=== PATIENT | female | born 1955 | race Caucasian/White ===

== ENCOUNTER 2017-05-09 10:46 | Inpatient (IN) | payer OTHER ==
[2017-05-09] MEDS ORDERED: SODIUM CHLORIDE 0.9% 1,000 ML IV ONE (11:19)
[2017-05-09] MEDS ORDERED: KETOROLAC 30 MG/ML 1 ML VIAL IVP STA (11:19)
--- NOTE | 2017-05-09 11:30 | ED ---
Abdominal Pain HPI - General Chief Complaint: Abdominal Pain Stated Complaint: abd pain Time Seen by Provider: 05/09/17 10:54 Source: patient, RN notes reviewed Mode of arrival: ambulatory Limitations: no limitations - History of Present Illness Initial Comments: Patient is a 61-year-old female presents emergency room for evaluation of abdominal pain. Patient states pain began about a week because been getting worse. Patient states the pain has been worsening over the past 2 days. Patient does states she has history of diverticulosis. Patient states she feels that she's having a diverticulitis flareup. Patient states last flareup was in 2013. Patient states she's having right lower quadrant and left lower quadrant pain. Patient states she's been having a mix of diarrhea and constipation. Patient states she had diarrhea all day yesterday and has not had a bowel movement today. Patient denies any blood in stools or dark tarry stools. Patient denies pain or burning during urination, trouble urinating or blood in urine. Patient states she's had a history of D&C and tubal ligation. Patient denies any other abdominal surgeries. Patient states she was nauseous yesterday. Patient denies any current nausea today. Patient states the pain comes in waves. Patient states currently having 6 out of 10 pain. Patient denies fevers or chills. Patient denies chest pain or shortness of breath. Patient has been taking ibuprofen at home with no relief of symptoms. - Related Data Home Medications Medication Instructions Recorded Confirmed Multivitamin/Iron/Folic Acid 1 tab PO DAILY 11/20/15 05/09/17 [Centrum Complete Multivit Tab] Citalopram Hydrobromide [CeleXA] 10 mg PO DAILY 05/09/17 05/09/17 Previous Rx's Medication Instructions Recorded Ibuprofen [Motrin] 600 mg PO Q6HR PRN #20 tab 11/20/15 Allergies Allergy/AdvReac Type Severity Reaction Status Date / Time metronidazole [From Flagyl] AdvReac Nausea & Verified 05/09/17 10:51 Vomiting Review of Systems ROS Statement: Those systems with pertinent positive or pertinent negative responses have been documented in the HPI. ROS Other: All systems not noted in ROS Statement are negative. Past Medical History Past Medical History: Hyperlipidemia Additional Past Medical History / Comment(s): diverticulitis History of Any Multi-Drug Resistant Organisms: None Reported Past Surgical History: Hysterectomy Past Psychological History: Anxiety, Depression Smoking Status: Current every day smoker Past Alcohol Use History: Rare Past Drug Use History: None Reported - Past Family History Father Family Medical History: Diabetes Mellitus, Hypertension Additional Family Medical History / Comment(s): septicemia, from Mother Family Medical History: Cancer, Hypertension Additional Family Medical History / Comment(s): leukemia Brother(s) Family Medical History: Coronary Artery Disease (CAD) Additional Family Medical History / Comment(s): heart bypass General Exam - General Exam Comments Initial Comments: sitting in exam room, no distress. Limitations: no limitations General appearance: alert, in no apparent distress Head exam: Present: atraumatic, normocephalic, normal inspection Eye exam: Present: normal appearance ENT exam: Present: normal exam Neck exam: Present: normal inspection Respiratory exam: Present: normal lung sounds bilaterally. Absent: respiratory distress Cardiovascular Exam: Present: normal rhythm, tachycardia, normal heart sounds GI/Abdominal exam: Present: soft, tenderness (RLQ/LLQ), normal bowel sounds. Absent: distended, guarding, rebound, rigid Extremities exam: Present: normal inspection Back exam: Present: normal inspection Neurological exam: Present: alert, oriented X3, CN II-XII intact, normal gait Psychiatric exam: Present: normal affect, normal mood Skin exam: Present: warm, dry, intact, normal color. Absent: rash Course Vital Signs 05/09/17 05/09/17 05/09/17 10:46 11:43 12:33 Temperature 99.3 F Pulse Rate 115 H 84 77 Respiratory 18 20 18 Rate Blood Pressure 123/56 99/53 99/66 O2 Sat by Pulse 95 95 97 Oximetry 05/09/17 13:45 Temperature 98.0 F Pulse Rate 77 Respiratory 20 Rate Blood Pressure 99/56 O2 Sat by Pulse 99 Oximetry Medical Decision Making - Medical Decision Making Patient is 61-year-old female since emergency room for evaluation of abdominal pain. CT abdomen/pelvis significant for diverticulitis. Patient does have an elevated white count. Secondary to elevated white count, will admit patient with IV antibiotics. Patient is ALLERGIC to metronidazole. Patient be started on Zosyn. Case discussed Dr. Hutchinson, who discussed case with Dr. Sanchez, who agreed to admit patient. - Lab Data Result diagrams: 05/09/17 11:17 05/09/17 11:17 Lab Results 05/09/17 05/09/17 05/09/17 Range/Units 11:17 11:17 11:17 WBC 20.6 H (3.8-10.6) k/uL RBC 5.26 (3.80-5.40) m/uL Hgb 16.4 H (11.4-16.0) gm/dL Hct 48.4 H (34.0-46.0) % MCV 92.0 (80.0-100.0) fL MCH 31.2 (25.0-35.0) pg MCHC 34.0 (31.0-37.0) g/dL RDW 13.9 (11.5-15.5) % Plt Count 271 (150-450) k/uL Neutrophils % 75 % Lymphocytes % 14 % Monocytes % 8 % Eosinophils % 1 % Basophils % 1 % Neutrophils # 15.5 H (1.3-7.7) k/uL Lymphocytes # 2.9 (1.0-4.8) k/uL Monocytes # 1.6 H (0-1.0) k/uL Eosinophils # 0.2 (0-0.7) k/uL Basophils # 0.1 (0-0.2) k/uL Sodium 140 (137-145) mmol/L Potassium 4.2 (3.5-5.1) mmol/L Chloride 110 H (98-107) mmol/L Carbon Dioxide 26 (22-30) mmol/L Anion Gap 4 mmol/L BUN 10 (7-17) mg/dL Creatinine 0.73 (0.52-1.04) mg/dL Est GFR (MDRD) Af Amer >60 (>60 ml/min/1.73 sqM) Est GFR (MDRD) Non-Af >60 (>60 ml/min/1.73 sqM) Glucose 105 H (74-99) mg/dL Calcium 8.7 (8.4-10.2) mg/dL Magnesium 2.1 (1.6-2.3) mg/dL Total Bilirubin 1.1 (0.2-1.3) mg/dL AST 14 (14-36) U/L ALT 27 (9-52) U/L Alkaline Phosphatase 48 (38-126) U/L Total Protein 5.7 L (6.3-8.2) g/dL Albumin 3.4 L (3.5-5.0) g/dL Amylase 42 (30-110) U/L Lipase 46 (23-300) U/L Urine Color Yellow Urine Appearance Clear (Clear) Urine pH 5.5 (5.0-8.0) Ur Specific [place] 1.011 (1.001-1.035) Urine Protein Negative (Negative) Urine Glucose (UA) Negative (Negative) Urine Ketones Negative (Negative) Urine Blood Trace H (Negative) Urine Nitrite Negative (Negative) Urine Bilirubin Negative (Negative) Urine Urobilinogen <2.0 (<2.0) mg/dL Ur Leukocyte Esterase Negative (Negative) Urine RBC <1 (0-5) /hpf Urine WBC 1 (0-5) /hpf Ur Squamous Epith Cells 1 (0-4) /hpf Urine Mucus Rare H (None) /hpf - Radiology Data Radiology results: report reviewed, image reviewed Disposition Clinical Impression: Diverticulitis Disposition: ADMITTED IP TO THIS [facility] Condition: Stable Decision Date: 05/09/17
[2017-05-09 11:32] LABS: Basophils # (A) 0.1 k/uL (0-0.2); Basophils % (A) 1 %; CH 30.7; CHCM 33.6; Eosinophils # (A) 0.2 k/uL (0-0.7); Eosinophils % (A) 1 %; HCT 48.4 % (34.0-46.0); HDW 2.33; HGB 16.4 gm/dL (11.4-16.0); Luc % (Auto) 2; Lymphocytes # (A) 2.9 k/uL (1.0-4.8); Lymphocytes % (A) 14 %; MCH 31.2 pg (25.0-35.0); Mean Platelet Volume 8.6; Monocytes # (A) 1.6 k/uL (0-1.0); Monocytes % (A) 8 %; Neutrophils # (A) 15.5 k/uL (1.3-7.7); Neutrophils % (A) 75 %; RBC 5.26 m/uL (3.80-5.40); RDW 13.9 % (11.5-15.5); WBC 20.6 k/uL (3.8-10.6); WBC (Perox) 20.82
[2017-05-09 11:35] LABS: ALT 27 U/L (9-52); AST 14 U/L (14-36); Alkaline Phosphatase 48 U/L (38-126); Amylase 42 U/L (30-110); Anion Gap 4 mmol/L; Blood Urea Nitrogen 10 mg/dL (7-17); Calcium 8.7 mg/dL (8.4-10.2); Carbon Dioxide 26 mmol/L (22-30); Chloride 110 mmol/L (98-107); Glucose 105 mg/dL (74-99); Magnesium 2.1 mg/dL (1.6-2.3); Non-African American GFR(MDRD) >60 (>60 ml/min/1.73 sqM); Potassium 4.2 mmol/L (3.5-5.1); Sodium 140 mmol/L (137-145); Total Bilirubin 1.1 mg/dL (0.2-1.3); Total Protein 5.7 g/dL (6.3-8.2)
[2017-05-09 11:41] LABS: Appearance,Urine Clear (Clear); Bilirubin,Urine Negative (Negative); Glucose,Urine (UA) Negative (Negative); Ketones,Urine Negative (Negative); Leukocyte Esterase,Urine Negative (Negative); Mucus,Urine Rare /hpf; Nitrite,Urine Negative (Negative); PH, Urine 5.5 (5.0-8.0); Particle Count 1000; Protein,Urine Negative (Negative); RBC,Urine <1 /hpf (0-5); Specific Gravity,Urine 1.011 (1.001-1.035); Squamous Epithelial Cell,Urine 1 /hpf (0-4); UA Billing (MACRO vs. MICRO) MICRO; Urobilinogen,Urine <2.0 mg/dL (<2.0); WBC,Urine 1 /hpf (0-5)
[2017-05-09] MEDS ORDERED: RX INFO: IV CONTRAST WAS GIVEN 1 EACH MISC MISCELLANE PRN (11:52)
--- NOTE | 2017-05-09 12:29 | CT ---
EXAMINATION TYPE: CT abdomen pelvis w con DATE OF EXAM: 05/09/2017 HISTORY: Abdomen pain in particular low pelvic pain for one week. CT DLP: 646.3mGycm Automated Exposure Control for Dose Reduction was Utilized. CONTRAST: CT scan of the abdomen and pelvis is performed without oral but with IV Contrast, patient injected wi th 100 mL of Omnipaque 300. COMPARISON: CT abdomen and pelvis July 03, 2014. FINDINGS: LUNG BASES: Mild cardiomegaly is redemonstrated. LIVER/GB: No significant abnormality is appreciated. PANCREAS: No significant abnormality is seen. SPLEEN: No significant abnormality is seen. ADRENALS: Slight thickening to left adrenal gland is felt to reflect hyperplasia. KIDNEYS: Subcentimeter low dense lesion lower pole level right kidney on coronal series 7 image 56 is too small to further characterize but presumed benign and stable from prior. BOWEL: Evaluation of bowel is suboptimal secondary to lack of enteric contrast. There is no suspiciou s small or large bowel dilatation. There artifact particularly scattered throughout the colon most pr onounced in the sigmoid colon. In proximal to mid sigmoid colon in the left pelvis there is mild to m inimal surrounding fat stranding and ill-defined fluid, findings are consistent with acute diverticul itis this is seen best on coronal image 35. UTERUS/ADNEXA: Uterus is surgically absent or markedly atrophic in appearance. Scattered pelvic phleb oliths are noted. LYMPH NODES: No greater than 1cm abdominal or pelvic lymph nodes are appreciated. OSSEOUS STRUCTURES: There is multilevel spurring throughout the thoracolumbar spine. There is multile bri disc space narrowing and vacuum disc phenomenon in the lower thoracic and upper lumbar spine. OTHER: There is fairly moderate diffuse mixed plaque throughout the aorta. IMPRESSION: There is a mild acute diverticulitis centered in the proximal to mid sigmoid colon of the left pelvis. No free air or well-formed fluid collection/abscess is noted.
[2017-05-09] MEDS ORDERED: PIPERACILLIN-TAZOBACTAM 3.375 GM in DEXTROSE/WATER 1 50ML.BAG IVPB STA (12:50)
[2017-05-09] MEDS ORDERED: ONDANSETRON 4 MG/2 ML VIAL IVP PRN ×2 (12:51→15:04)
[2017-05-09] MEDS ORDERED: NALOXONE 0.4 MG/ML 1 ML VIAL IV PRN (12:51)
[2017-05-09] MEDS: SODIUM CHLORIDE 0.9% 1,000 ML IV SCH ×3 (13:05→23:53)
[2017-05-09] MEDS: MORPHINE SULFATE 4 MG/ML SYRINGE IV PRN ×2 (14:16→21:49)
[2017-05-09 14:53] VITALS: BMI 26.6
[2017-05-09] MEDS: KETOROLAC 30 MG/ML 1 ML VIAL IVP PRN (16:52)
[2017-05-09] MEDS: diphenhydrAMINE 25 MG CAP PO PRN (21:49)
[2017-05-10] MEDS: CITALOPRAM HYDROBROMIDE 10 MG TAB PO SCH (08:50)
[2017-05-10] MEDS: MORPHINE SULFATE 4 MG/ML SYRINGE IV PRN ×2 (08:51→22:04)
[2017-05-10] MEDS: SODIUM CHLORIDE 0.9% 1,000 ML IV SCH ×2 (08:57→17:37)
[2017-05-10 09:43] LABS: Basophils # (A) 0.1 k/uL (0-0.2); Basophils % (A) 0 %; CH 30.8; CHCM 32.4; Eosinophils # (A) 0.2 k/uL (0-0.7); Eosinophils % (A) 2 %; HCT 42.7 % (34.0-46.0); HDW 2.27; HGB 13.7 gm/dL (11.4-16.0); Luc # (Auto) 0.23; Luc % (Auto) 2; Lymphocytes # (A) 2.5 k/uL (1.0-4.8); Lymphocytes % (A) 20 %; MCH 30.7 pg (25.0-35.0); MCHC 32.1 g/dL (31.0-37.0); MCV 95.7 fL (80.0-100.0); Mean Platelet Volume 8.7; Monocytes # (A) 0.9 k/uL (0-1.0); Monocytes % (A) 7 %; Neutrophils # (A) 8.7 k/uL (1.3-7.7); Neutrophils % (A) 69 %; RBC 4.47 m/uL (3.80-5.40); RDW 14.1 % (11.5-15.5); WBC 12.6 k/uL (3.8-10.6); WBC (Perox) 12.56
[2017-05-10 10:01] LABS: ALT 27 U/L (9-52); AST 13 U/L (14-36); Alkaline Phosphatase 42 U/L (38-126); Anion Gap 5 mmol/L; Blood Urea Nitrogen 6 mg/dL (7-17); Calcium 7.9 mg/dL (8.4-10.2); Carbon Dioxide 25 mmol/L (22-30); Chloride 111 mmol/L (98-107); Glucose 108 mg/dL (74-99); Non-African American GFR(MDRD) >60 (>60 ml/min/1.73 sqM); Potassium 4.4 mmol/L (3.5-5.1); Sodium 141 mmol/L (137-145); Total Bilirubin 0.5 mg/dL (0.2-1.3); Total Protein 4.7 g/dL (6.3-8.2)
[2017-05-10] MEDS: MULTIVITAMINS, THERA 1 EACH TAB PO SCH (13:21)
[2017-05-10] MEDS: KETOROLAC 30 MG/ML 1 ML VIAL IVP PRN ×2 (13:21→17:34)
--- NOTE | 2017-05-10 15:33 | P.HPIM ---
History of Present Illness H&P Date: 05/09/17 Chief Complaint: Adbominal pain and diarrhea Ms. Adams is a 62-year-old female with a past medical history of hyperlipidemia, diverticulitis coming to the hospital with a chief complaint of abdominal pain and diarrhea. Patient states that she has been having abdominal pain mostly in the deep pelvic area for the past 1 week. She started to have diarrhea for the past couple of days and it has worsened over the past 24 hours that she had to come into the hospital. Patient denies having a low- grade fever. She states that she threw up once. Patient denies having any blood in her stools or dark colored stools. Patient denies having any urinary tract symptoms like dysuria or hematuria. She denies having any chest pain or cough difficulty in breathing. She denies having any other active problems. She has history of diverticulitis and has been treated with antibiotics couple of times in the past. Review of Systems REVIEW OF SYSTEMS: PSYCH: Normal psychiatric exam NEURO:No c/o weakness of the extremties, No facial droop, No speech abnormalities. VASCULAR: Peripheral nervous system within the normal limits no edema HEMATOLOGIC: No history of easy bleeding and bruising . No recent infections . RESPIRATORY: No cough, No SOB, No chest discomfort. IMMUNE: No infections INTEGUMENT: no rashes OPHTHALMOLOGIC: No blurry vision and no eye discharge : No dysuria or hematuria STAFF REPORTER: No bleeding PV CARDIAC: No chest pain , shortness of breath , paroxysmal nocturnal dyspnea MUSCULOSKELETAL : No Aches or pains in the joints or muscles. All 13 systems are done and negative except for ones mentioned in HPI. Past Medical History Past Medical History: Hyperlipidemia Additional Past Medical History / Comment(s): diverticulitis History of Any Multi-Drug Resistant Organisms: None Reported Past Surgical History: Hysterectomy Additional Past Surgical History / Comment(s): D&C, oopherectomy Past Anesthesia/Blood Transfusion Reactions: Postoperative Nausea & Vomiting ( PONV) Past Psychological History: Anxiety, Depression Smoking Status: Current every day smoker Past Alcohol Use History: Rare Past Drug Use History: None Reported - Past Family History Father Family Medical History: Diabetes Mellitus, Hypertension Additional Family Medical History / Comment(s): septicemia, from Mother Family Medical History: Cancer, Hypertension Additional Family Medical History / Comment(s): leukemia Brother(s) Family Medical History: Coronary Artery Disease (CAD) Additional Family Medical History / Comment(s): heart bypass Medications and Allergies Home Medications Medication Instructions Recorded Confirmed Type Multivitamin/Iron/Folic Acid 1 tab PO DAILY 11/20/15 05/09/17 History [Centrum Complete Multivit Tab] Citalopram Hydrobromide [CeleXA] 10 mg PO DAILY 05/09/17 05/09/17 History Allergies Allergy/AdvReac Type Severity Reaction Status Date / Time metronidazole [From Flagyl] AdvReac Nausea & Verified 05/09/17 10:51 Vomiting Physical Exam Vitals: Vital Signs Temp Pulse Pulse Resp BP BP Pulse Ox 05/09/17 14:25 97.3 F L 76 16 119/64 96 05/09/17 13:45 98.0 F 77 20 99/56 99 05/09/17 12:33 77 18 99/66 97 05/09/17 11:43 84 20 99/53 95 05/09/17 10:46 99.3 F 115 H 18 123/56 95 Intake and Output 05/09/17 05/09/17 05/09/17 06:59 14:59 22:59 Intake Total 50 Balance 50 Intake: Intake, IV Titration 50 Amount Piperacillin-Tazobactam 3 50 .375 gm In Dextrose/Water 1 50ml.bag @ 12.5 mls/hr IVPB ONCE STA Rx#: [id number] Other: # Voids 1 Weight 70.3 kg 70.3 kg Patient Weight 05/10/17 06:59 Weight 70.3 kg Limitations: no limitations General appearance: alert, in no apparent distress Head exam: Present: atraumatic, normocephalic, normal inspection Eye exam: Present: normal appearance ENT exam: Present: normal exam Neck exam: Present: normal inspection Respiratory exam: Present: normal lung sounds bilaterally. Absent: respiratory distress Cardiovascular Exam: Present: normal rhythm, tachycardia, normal heart sounds GI/Abdominal exam: Present: soft, tenderness in both the lower abdominal quadrants normal bowel sounds. Absent: distended, guarding, rebound, rigid Extremities exam: Present: normal inspection Back exam: Present: normal inspection Neurological exam: Present: alert, oriented X3, CN II-XII intact, normal gait Psychiatric exam: Present: normal affect, normal mood Skin exam: Present: warm, dry, intact, normal color. Absent: rash Results CBC & Chem 7: 05/10/17 09:16 05/10/17 09:16 Labs: Abnormal Lab Results - Last 24 Hours (Table) 05/09/17 05/09/17 05/09/17 Range/Units 11:17 11:17 11:17 WBC 20.6 H (3.8-10.6) k/uL Hgb 16.4 H (11.4-16.0) gm/dL Hct 48.4 H (34.0-46.0) % Neutrophils # 15.5 H (1.3-7.7) k/uL Monocytes # 1.6 H (0-1.0) k/uL Chloride 110 H (98-107) mmol/L Glucose 105 H (74-99) mg/dL Total Protein 5.7 L (6.3-8.2) g/dL Albumin 3.4 L (3.5-5.0) g/dL Urine Blood Trace H (Negative) Urine Mucus Rare H (None) /hpf Thrombosis Risk Factor Assmnt - Choose All That Apply Any of the Below Risk Factors Present?: Yes Each Factor Represents 1 point: Obesity (BMI >25) Other Risk Factors: Yes Each Risk Factor Represents 2 Points: Age 61-74 years Other congenital or acquired thrombophilia - If yes, enter type in comment: No Thrombosis Risk Factor Assessment Total Risk Factor Score: 3 Thrombosis Risk Factor Assessment Level: Moderate Risk Assessment and Plan Plan: ASSESSMENT Acute Diverticulitis Hyperlipidemia PLAN- Pt is allergic to Flagyl , so she was started on Zosyn tat will be continued. Will resume her home meds and further recs to follow depending on the progress of the pt.
--- NOTE | 2017-05-10 15:36 | P.PN ---
Subjective Principal diagnosis: Abdominal pain and diarrhea Ms. Adams is a 62-year-old female with a past medical history of hyperlipidemia, diverticulitis coming to the hospital with a chief complaint of abdominal pain and diarrhea. Patient states that she has been having abdominal pain mostly in the deep pelvic area for the past 1 week. She started to have diarrhea for the past couple of days and it has worsened over the past 24 hours that she had to come into the hospital. Patient denies having a low- grade fever. She states that she threw up once. Patient denies having any blood in her stools or dark colored stools. Patient denies having any urinary tract symptoms like dysuria or hematuria. She had a CAT scan of the abdomen and pelvis showing acute diverticulitis. As the patient is ALLERGIC to Flagyl she was started on Zosyn which will be continued. Review of systems - CARDIAC - she denies having any chest pain, palpitations RESPIRATORY- no cough or difficulty in breathing - No dysuria or hematuria GI- the area improved no bowel movement since admission. Abdominal pain 2 out of 10 today. Objective - Vital Signs Vital signs: Vital Signs Temp 98.3 F 05/10/17 15:00 Pulse 62 05/10/17 15:00 Resp 16 05/10/17 15:00 BP 107/66 05/10/17 15:00 Pulse Ox 93 L 05/10/17 15:00 Intake & Output 05/09/17 05/10/17 05/10/17 18:59 06:59 18:59 Intake Total 50 600 900 Balance 50 600 900 Weight 70.3 kg Intake: Intake, IV Titration 50 500 Amount Piperacillin-Tazobactam 3 50 .375 gm In Dextrose/Water 1 50ml.bag @ 12.5 mls/hr IVPB ONCE STA Rx#: [id number] Sodium Chloride 0.9% 1, 500 000 ml @ 100 mls/hr IV . Q10H ACE Rx#:[id number] Oral 600 400 Other: # Voids 1 0 - Exam GENERAL EXAM GEN. APPEARANCE: alert, in no apparent distress HEAD EXAM: atraumatic, normocephalic, normal inspection NECK EXAM: normal inspection. Absent: tenderness, meningismus, full ROM, lymphadenopathy RESPIRATORY EXAM: normal lung sounds bilaterally. Absent: respiratory distress , wheezes, rales, rhonchi, stridor CARDIOVASCULAR EXAM: regular rate, normal rhythm, normal heart sounds. Absent : systolic murmur, diastolic murmur, rubs, gallop, clicks GI/ABDOMINAL EXAM: soft, normal bowel sounds. Absent: distended, tenderness, guarding, rebound, rigid EXTREMITIES EXAM: normal inspection, full ROM, normal capillary refill. Absent : tenderness, pedal edema, joint swelling, calf tenderness NEUROLOGICAL EXAM: alert, oriented X3, CN II-XII intact, motor sensory deficit PSYCHIATRIC EXAM: normal affect, normal mood SKIN EXAM: warm, dry, intact, normal color. Absent: rash - Labs CBC & Chem 7: 05/10/17 09:16 05/10/17 09:16 Labs: Abnormal Lab Results - Last 24 Hours (Table) 05/10/17 05/10/17 Range/Units 09:16 09:16 WBC 12.6 H (3.8-10.6) k/uL Neutrophils # 8.7 H (1.3-7.7) k/uL Chloride 111 H (98-107) mmol/L BUN 6 L (7-17) mg/dL Glucose 108 H (74-99) mg/dL Calcium 7.9 L (8.4-10.2) mg/dL AST 13 L (14-36) U/L Total Protein 4.7 L (6.3-8.2) g/dL Albumin 2.7 L (3.5-5.0) g/dL Microbiology - Last 24 Hours (Table) 05/09/17 13:05 Blood Culture - Preliminary Blood No Growth after 24 hours Assessment and Plan Plan: ASSESSMENT Acute Diverticulitis Hyperlipidemia PLAN- Pt is allergic to Flagyl , so Zosyn was started. WBC trending down. We will advance the diet as tolerated. Continue with the rest of her current medication regimen and further recommendations to follow depending on the progress of the patient.
[2017-05-10] MEDS: diphenhydrAMINE 25 MG CAP PO PRN (22:04)
[2017-05-11] MEDS: SODIUM CHLORIDE 0.9% 1,000 ML IV SCH ×2 (05:16→09:11)
[2017-05-11 08:25] LABS: Basophils # (A) 0.1 k/uL (0-0.2); Basophils % (A) 1 %; CH 30.5; CHCM 32.7; Eosinophils # (A) 0.3 k/uL (0-0.7); Eosinophils % (A) 3 %; HCT 42.2 % (34.0-46.0); HDW 2.33; Luc # (Auto) 0.17; Luc % (Auto) 2; Lymphocytes # (A) 2.8 k/uL (1.0-4.8); Lymphocytes % (A) 30 %; MCHC 33.1 g/dL (31.0-37.0); MCV 93.6 fL (80.0-100.0); Mean Platelet Volume 8.3; Monocytes # (A) 0.5 k/uL (0-1.0); Monocytes % (A) 6 %; Neutrophils # (A) 5.3 k/uL (1.3-7.7); Neutrophils % (A) 58 %; RDW 13.6 % (11.5-15.5); WBC 9.2 k/uL (3.8-10.6); WBC (Perox) 10.05
[2017-05-11] MEDS: CITALOPRAM HYDROBROMIDE 10 MG TAB PO SCH (09:10)
[2017-05-11] MEDS: MULTIVITAMINS, THERA 1 EACH TAB PO SCH (09:10)
[2017-05-11] MEDS: KETOROLAC 30 MG/ML 1 ML VIAL IVP PRN (09:37)
[2017-05-11] MEDS ORDERED: PIPERACILLIN-TAZOBACTAM 3.375 GM in DEXTROSE/WATER 1 50ML.BAG IVPB STA (11:05)
[2017-05-11 14:58] VITALS: BP 121/74; PULSE 64; RESP 20; TEMP 98.2
--- NOTE | 2017-05-11 15:23 | P.DS ---
Providers Date of admission: 05/09/17 13:20 Attending physician: Samantha Smith Primary care physician: [facility] Course: Ms. Adams is a 62-year-old female with a past medical history of hyperlipidemia, diverticulitis coming to the hospital with a chief complaint of abdominal pain and diarrhea. Patient states that she has been having abdominal pain mostly in the deep pelvic area for the past 1 week. She started to have diarrhea for the past couple of days and it has worsened over the past 24 hours that she had to come into the hospital. Patient denies having a low- grade fever. She states that she threw up once. Patient denies having any blood in her stools or dark colored stools. Patient denies having any urinary tract symptoms like dysuria or hematuria. She denies having any chest pain or cough difficulty in breathing. She denies having any other active problems. She had a CAT scan of the abdomen and pelvis showing acute diverticulitis. As the patient is ALLERGIC to Flagyl she was started on Zosyn which was continued. WBC was trending down. Advanced the diet as tolerated. Continued with the rest of her current medication regimen. She is able to tolerate PO soilds and she has one formed bowel movement this morning. She is being discharged home on Augmentin twice a day for 5 days. More than 35 minutes spent towards the discharge with the patient Patient Condition at Discharge: Fair Plan - Discharge Summary New Discharge Prescriptions: New Amoxic-Pot Clav 875-125Mg [Augmentin 875-125] 1 tab PO Q12HR #10 tablet Continue Multivitamin/Iron/Folic Acid [Centrum Complete Multivit Tab] 1 tab PO DAILY Ibuprofen [Motrin] 600 mg PO Q6HR PRN #20 tab PRN Reason: Pain Citalopram Hydrobromide [CeleXA] 10 mg PO DAILY Discharge Medication List Ibuprofen [Motrin] 600 mg PO Q6HR PRN #20 tab 11/20/15 [Rx] Multivitamin/Iron/Folic Acid [Centrum Complete Multivit Tab] 1 tab PO DAILY [History] Citalopram Hydrobromide [CeleXA] 10 mg PO DAILY 05/09/17 [History] Amoxic-Pot Clav 875-125Mg [Augmentin 875-125] 1 tab PO Q12HR #10 tablet [Rx] Follow up Appointment(s)/Referral(s): Ana Bowles MD [Primary Care Provider] - 05/19/17 9:00 am Patient Instructions/Handouts: How to Stop Smoking (DC), Diverticulitis (DC) Discharge Disposition: HOME SELF-CARE
== END 2017-05-11 16:26 | disposition home or self-care (01) | DRG 392 ==
LOC: EC 10:46 → 4MS4W 13:20
PROVIDERS: ADMIT Internal Medicine; ATTEND Internal Medicine
DX: K57.32 Diverticulitis of large intestine without perforation or abscess without bleeding (principal); F32.9 Major depressive disorder, single episode, unspecified; R11.0 Nausea; D72.829 Elevated white blood cell count, unspecified; R19.7 Diarrhea, unspecified; R00.0 Tachycardia, unspecified; K57.30 Diverticulosis of large intestine without perforation or abscess without bleeding; K59.00 Constipation, unspecified; F41.9 Anxiety disorder, unspecified; E78.5 Hyperlipidemia, unspecified; F17.200 Nicotine dependence, unspecified, uncomplicated; Z88.1 Allergy status to other antibiotic agents; Z80.6 Family history of leukemia; Z82.49 Family history of ischemic heart disease and other diseases of the circulatory system; Z79.899 Other long term (current) drug therapy; Z83.3 Family history of diabetes mellitus; Z86.19 Personal history of other infectious and parasitic diseases; Z87.19 Personal history of other diseases of the digestive system; Z90.710 Acquired absence of both cervix and uterus; Z90.721 Acquired absence of ovaries, unilateral; Z98.51 Tubal ligation status; Z79.1 Long term (current) use of non-steroidal anti-inflammatories (NSAID); Z87.42 Personal history of other diseases of the female genital tract
CPT/HCPCS: 36415; 74177; 80053; 81001; 82150; 83690; 83735; 85025; 87040; 87045; 87046; 96361; 96365; 96376; 99285

== ENCOUNTER 2017-08-13 11:13 | Emergency (ER) | payer OTHER ==
[2017-08-13] MEDS ORDERED: RX INFO: IV CONTRAST WAS GIVEN 1 EACH MISC MISCELLANE PRN (11:44)
[2017-08-13] MEDS ORDERED: SODIUM CHLORIDE 0.9% 500 ML IV STA (11:44)
--- NOTE | 2017-08-13 11:48 | ED ---
General Adult HPI - General Chief complaint: Abdominal Pain Stated complaint: Abdominal pain Time Seen by Provider: 08/13/17 11:34 Source: patient, RN notes reviewed Mode of arrival: ambulatory Limitations: no limitations - History of Present Illness Initial comments: Patient is a pleasant 62-year-old female presenting to the emergency Department with abdominal discomfort. Onset of symptoms was for 5 days ago. Discomfort is left lower abdomen. Patient has had similar problems 3 times previously associated with diverticulitis. No fevers. No nausea vomiting. No constipation or diarrhea. Discomfort is mild at this time. Patient also questions if she could've had bad chicken recently. - Related Data Home Medications Medication Instructions Recorded Confirmed Multivitamin/Iron/Folic Acid 1 tab PO DAILY 11/20/15 08/13/17 [Centrum Complete Multivit Tab] Acetaminophen/Diphenhydramine 2 tab PO HS 08/13/17 08/13/17 [Tylenol PM Extra Strength] Citalopram Hydrobromide [CeleXA] 20 mg PO DAILY 08/13/17 08/13/17 Previous Rx's Medication Instructions Recorded Amoxic-Pot Clav 875-125Mg 1 tab PO Q12HR #20 tablet 08/13/17 [Augmentin 875-125] Allergies Allergy/AdvReac Type Severity Reaction Status Date / Time metronidazole [From Flagyl] AdvReac Nausea & Verified 08/13/17 11:50 Vomiting Review of Systems ROS Statement: Those systems with pertinent positive or pertinent negative responses have been documented in the HPI. ROS Other: All systems not noted in ROS Statement are negative. Constitutional: Denies: fever Eyes: Denies: eye pain ENT: Denies: ear pain Respiratory: Denies: cough Cardiovascular: Denies: chest pain Endocrine: Denies: as per HPI Gastrointestinal: Reports: abdominal pain Genitourinary: Denies: dysuria, hematuria Musculoskeletal: Denies: back pain Skin: Denies: rash Neurological: Denies: weakness Past Medical History Past Medical History: Hyperlipidemia Additional Past Medical History / Comment(s): diverticulitis, HYPOTENSION History of Any Multi-Drug Resistant Organisms: None Reported Past Surgical History: Hysterectomy Additional Past Surgical History / Comment(s): D&C, oopherectomy Past Anesthesia/Blood Transfusion Reactions: Postoperative Nausea & Vomiting ( PONV) Past Psychological History: Anxiety, Depression Smoking Status: Current every day smoker Past Alcohol Use History: Rare Past Drug Use History: None Reported - Past Family History Father Family Medical History: Diabetes Mellitus, Hypertension Additional Family Medical History / Comment(s): septicemia, from Mother Family Medical History: Cancer, Hypertension Additional Family Medical History / Comment(s): leukemia Brother(s) Family Medical History: Coronary Artery Disease (CAD) Additional Family Medical History / Comment(s): heart bypass General Exam Limitations: no limitations General appearance: alert, in no apparent distress Head exam: Present: atraumatic Eye exam: Present: normal appearance, PERRL ENT exam: Present: normal oropharynx Neck exam: Present: normal inspection Respiratory exam: Present: normal lung sounds bilaterally Cardiovascular Exam: Present: regular rate, normal rhythm Expanded Peripheral pulses: 2+: Dorsalis Pedis (R), Dorsalis Pedis (L) GI/Abdominal exam: Present: soft, tenderness (Minimal tenderness left lower quadrant), normal bowel sounds. Absent: distended, guarding, rebound, rigid, pulsatile mass Extremities exam: Present: normal inspection Back exam: Present: normal inspection. Absent: tenderness, CVA tenderness (L) Neurological exam: Present: alert Psychiatric exam: Present: normal affect, normal mood Skin exam: Present: normal color Course Vital Signs 08/13/17 11:31 Temperature 99.9 F H Pulse Rate 92 Respiratory 18 Rate Blood Pressure 107/63 O2 Sat by Pulse 95 Oximetry Medical Decision Making - Medical Decision Making Patient reexamined and resting comfortably in bed. Patient is happy to be discharged home. Patient was updated on results and need for follow-up. - Lab Data Result diagrams: 08/13/17 12:07 08/13/17 12:07 Lab Results 08/13/17 08/13/17 08/13/17 Range/Units 12:05 12:07 12:07 WBC 12.6 H (3.8-10.6) k/uL RBC 4.86 (3.80-5.40) m/uL Hgb 14.8 (11.4-16.0) gm/dL Hct 46.2 H (34.0-46.0) % MCV 94.9 (80.0-100.0) fL MCH 30.4 (25.0-35.0) pg MCHC 32.0 (31.0-37.0) g/dL RDW 13.5 (11.5-15.5) % Plt Count 221 (150-450) k/uL Neutrophils % 58 % Lymphocytes % 31 % Monocytes % 7 % Eosinophils % 1 % Basophils % 1 % Neutrophils # 7.4 (1.3-7.7) k/uL Lymphocytes # 3.9 (1.0-4.8) k/uL Monocytes # 0.9 (0-1.0) k/uL Eosinophils # 0.2 (0-0.7) k/uL Basophils # 0.1 (0-0.2) k/uL PT (9.0-12.0) sec INR (<1.2) APTT (22.0-30.0) sec Sodium 140 (137-145) mmol/L Potassium 4.3 (3.5-5.1) mmol/L Chloride 112 H (98-107) mmol/L Carbon Dioxide 23 (22-30) mmol/L Anion Gap 5 mmol/L BUN 8 (7-17) mg/dL Creatinine 0.80 (0.52-1.04) mg/dL Est GFR (MDRD) Af Amer >60 (>60 ml/min/1.73 sqM) Est GFR (MDRD) Non-Af >60 (>60 ml/min/1.73 sqM) Glucose 101 H (74-99) mg/dL Plasma Lactic Acid Alejandro (0.7-2.0) mmol/L Calcium 8.4 (8.4-10.2) mg/dL Total Bilirubin 0.4 (0.2-1.3) mg/dL AST 17 (14-36) U/L ALT 24 (9-52) U/L Alkaline Phosphatase 40 (38-126) U/L Total Protein 5.3 L (6.3-8.2) g/dL Albumin 3.1 L (3.5-5.0) g/dL Amylase <30 L (30-110) U/L Lipase 50 (23-300) U/L Urine Color Light Yellow Urine Appearance Clear (Clear) Urine pH 6.0 (5.0-8.0) Ur Specific [place] 1.006 (1.001-1.035) Urine Protein Negative (Negative) Urine Glucose (UA) Negative (Negative) Urine Ketones Negative (Negative) Urine Blood Negative (Negative) Urine Nitrite Negative (Negative) Urine Bilirubin Negative (Negative) Urine Urobilinogen <2.0 (<2.0) mg/dL Ur Leukocyte Esterase Negative (Negative) 08/13/17 08/13/17 Range/Units 12:07 12:45 WBC (3.8-10.6) k/uL RBC (3.80-5.40) m/uL Hgb (11.4-16.0) gm/dL Hct (34.0-46.0) % MCV (80.0-100.0) fL MCH (25.0-35.0) pg MCHC (31.0-37.0) g/dL RDW (11.5-15.5) % Plt Count (150-450) k/uL Neutrophils % % Lymphocytes % % Monocytes % % Eosinophils % % Basophils % % Neutrophils # (1.3-7.7) k/uL Lymphocytes # (1.0-4.8) k/uL Monocytes # (0-1.0) k/uL Eosinophils # (0-0.7) k/uL Basophils # (0-0.2) k/uL PT 9.7 (9.0-12.0) sec INR 0.9 (<1.2) APTT 23.3 (22.0-30.0) sec Sodium (137-145) mmol/L Potassium (3.5-5.1) mmol/L Chloride (98-107) mmol/L Carbon Dioxide (22-30) mmol/L Anion Gap mmol/L BUN (7-17) mg/dL Creatinine (0.52-1.04) mg/dL Est GFR (MDRD) Af Amer (>60 ml/min/1.73 sqM) Est GFR (MDRD) Non-Af (>60 ml/min/1.73 sqM) Glucose (74-99) mg/dL Plasma Lactic Acid Alejandro 0.9 (0.7-2.0) mmol/L Calcium (8.4-10.2) mg/dL Total Bilirubin (0.2-1.3) mg/dL AST (14-36) U/L ALT (9-52) U/L Alkaline Phosphatase (38-126) U/L Total Protein (6.3-8.2) g/dL Albumin (3.5-5.0) g/dL Amylase (30-110) U/L Lipase (23-300) U/L Urine Color Urine Appearance (Clear) Urine pH (5.0-8.0) Ur Specific [place] (1.001-1.035) Urine Protein (Negative) Urine Glucose (UA) (Negative) Urine Ketones (Negative) Urine Blood (Negative) Urine Nitrite (Negative) Urine Bilirubin (Negative) Urine Urobilinogen (<2.0) mg/dL Ur Leukocyte Esterase (Negative) - Radiology Data Radiology results: report reviewed (Computed tomography scan of the abdomen pelvis does show mild to moderate inflammation and the junction of the descending and sigmoid colon. No diverticulitis.) Disposition Clinical Impression: Acute colitis Disposition: HOME SELF-CARE Condition: Stable Instructions: Colitis (ED) Additional Instructions: Please follow-up with your doctor in the next day or 2 for recheck. Return for increased pain, fevers, vomiting, diarrhea, worsening symptoms or other concerns. Prescriptions: Amoxic-Pot Clav 875-125Mg [Augmentin 875-125] 1 tab PO Q12HR #20 tablet Referrals: Ana Bowles MD [Primary Care Provider] - 1-2 days Time of Disposition: 13:52
[2017-08-13 12:19] LABS: Appearance,Urine Clear (Clear); Bilirubin,Urine Negative (Negative); Glucose,Urine (UA) Negative (Negative); Ketones,Urine Negative (Negative); Leukocyte Esterase,Urine Negative (Negative); Nitrite,Urine Negative (Negative); Protein,Urine Negative (Negative); Specific Gravity,Urine 1.006 (1.001-1.035); UA Billing (MACRO vs. MICRO) CHEM; Urobilinogen,Urine <2.0 mg/dL (<2.0)
[2017-08-13 12:34] LABS: Basophils # (A) 0.1 k/uL (0-0.2); Basophils % (A) 1 %; CH 30.7; CHCM 32.5; Eosinophils # (A) 0.2 k/uL (0-0.7); Eosinophils % (A) 1 %; HCT 46.2 % (34.0-46.0); HDW 2.22; HGB 14.8 gm/dL (11.4-16.0); Luc # (Auto) 0.18; Luc % (Auto) 2; Lymphocytes # (A) 3.9 k/uL (1.0-4.8); Lymphocytes % (A) 31 %; MCH 30.4 pg (25.0-35.0); MCV 94.9 fL (80.0-100.0); Mean Platelet Volume 8.2; Monocytes # (A) 0.9 k/uL (0-1.0); Monocytes % (A) 7 %; Neutrophils # (A) 7.4 k/uL (1.3-7.7); Neutrophils % (A) 58 %; RBC 4.86 m/uL (3.80-5.40); RDW 13.5 % (11.5-15.5); WBC 12.6 k/uL (3.8-10.6); WBC (Perox) 12.31
[2017-08-13 12:46] LABS: ALT 24 U/L (9-52); AST 17 U/L (14-36); Alkaline Phosphatase 40 U/L (38-126); Amylase <30 U/L (30-110); Anion Gap 5 mmol/L; Blood Urea Nitrogen 8 mg/dL (7-17); Calcium 8.4 mg/dL (8.4-10.2); Carbon Dioxide 23 mmol/L (22-30); Chloride 112 mmol/L (98-107); Glucose 101 mg/dL (74-99); Non-African American GFR(MDRD) >60 (>60 ml/min/1.73 sqM); Potassium 4.3 mmol/L (3.5-5.1); Sodium 140 mmol/L (137-145); Total Bilirubin 0.4 mg/dL (0.2-1.3); Total Protein 5.3 g/dL (6.3-8.2)
[2017-08-13 12:48] LABS: INR 0.9 (<1.2); Partial Thromboplastin Time 23.3 sec (22.0-30.0); Prothrombin Time 9.7 sec (9.0-12.0)
--- NOTE | 2017-08-13 12:56 | CT ---
EXAMINATION TYPE: CT abdomen pelvis w con DATE OF EXAM: 08/13/2017 COMPARISON: NONE HISTORY: 62-year-old female complains of LLQ pain with history of diverticulitis. TECHNIQUE: Contiguous axial scanning of the abdomen and pelvis following administration of 100 ml Omn ipaque 300 IV contrast. Delayed images through the kidneys and coronal/sagittal reconstructions perf ormed. CT DLP: 599.1 mGycm Automated exposure control for dose reduction was used. FINDINGS: Heart is normal size without pericardial effusion. Tiny hiatal hernia. Lung bases clear without pleur al effusion. Liver enlarged measuring 20.9 cm craniocaudal. There may be underlying fatty infiltration. Portal esteban ous system is patent. No biliary ductal dilatation. Mildly enlarged 1.9 cm portacaval lymph node appears unchanged from 05/09/2017 probably chronic reacti ve/post inflammatory. Gallbladder, adrenal glands, left kidney, spleen, and pancreas appear within normal limits. Subcentim eter hypodensity lower pole right kidney is unchanged and too small for accurate CT characterization, likely cyst. Moderate apical scarring plaque throughout the abdominal aorta. No dilated small bowel, free fluid, or free air. Normal appendix. Moderate stool in the right hemicolon. There is left hemicolonic diverticulosis, greatest in the sigmoid colon. There is wall thickening and focal inflammation centered at the junction of the descending and sigmoid colon. Moderate surroundin g inflammation is present with some strandy inflammatory edema. No abnormal fluid collection or free fluid in the pelvis. Multiple pelvic phleboliths. Bladder is non distended. Uterus surgically absent. Neither ovary is clearly delineated. Bones: Degenerative changes of hips and throughout the visualized spine. No osseous destructive proce ss. IMPRESSION: 1. LEFT HEMICOLONIC DIVERTICULOSIS WITH ACUTE DIVERTICULITIS AT THE JUNCTION OF THE DESCENDING AND SI GMOID COLON. MILD TO MODERATE INFLAMMATION IS PRESENT. NO ABSCESS OR FREE AIR. 2. HEPATOMEGALY. THERE MAY BE UNDERLYING HEPATIC STEATOSIS. CORRELATE WITH LFT's, LIPID PROFILE, AND PATIENT RISK FACTORS.
[2017-08-13 14:00] VITALS: BP 109/58; PULSE 74; RESP 20; TEMP 98.8
== END 2017-08-13 14:00 | disposition home or self-care (01) ==
LOC: EC 11:13
DX: K52.9 Noninfective gastroenteritis and colitis, unspecified (principal); F41.9 Anxiety disorder, unspecified; F32.9 Major depressive disorder, single episode, unspecified; F17.200 Nicotine dependence, unspecified, uncomplicated; Z90.710 Acquired absence of both cervix and uterus; Z88.1 Allergy status to other antibiotic agents; Z79.899 Other long term (current) drug therapy
CPT/HCPCS: 99284 ×2; 96360 ×2; 36415; 80053; 82150; 83605; 83690; 85025; 85610; 85730; 81003; 87040; 74177; Q9967

== ENCOUNTER 2018-02-07 13:00 | Emergency (ER) | payer OTHER ==
[2018-02-07] MEDS ORDERED: SODIUM CHLORIDE 0.9% 1,000 ML IV STA (13:12)
[2018-02-07] MEDS ORDERED: RX INFO: IV CONTRAST WAS GIVEN 1 EACH MISC MISCELLANE PRN (13:40)
[2018-02-07] MEDS ORDERED: KETOROLAC 30 MG/ML 1 ML VIAL IVP STA (13:40)
[2018-02-07 13:45] LABS: Basophils # (A) 0.1 k/uL (0-0.2); Basophils % (A) 1 %; Eosinophils # (A) 0.4 k/uL (0-0.7); Eosinophils % (A) 3 %; HCT 49.5 % (34.0-46.0); HGB 16.1 gm/dL (11.4-16.0); Lymphocytes # (A) 4.7 k/uL (1.0-4.8); Lymphocytes % (A) 30 %; MCH 29.3 pg (25.0-35.0); MCHC 32.6 g/dL (31.0-37.0); MCV 89.8 fL (80.0-100.0); Mean Platelet Volume 8.7; Monocytes % (A) 7 %; Neutrophils % (A) 58 %; Platelet Count 303 k/uL (150-450); RBC 5.51 m/uL (3.80-5.40); WBC 15.5 k/uL (3.8-10.6)
[2018-02-07 13:50] LABS: Appearance,Urine Clear (Clear); Bilirubin,Urine Negative (Negative); Blood,Urine Trace (Negative); Color,Urine Yellow; Glucose,Urine (UA) Negative (Negative); Ketones,Urine Negative (Negative); Leukocyte Esterase,Urine Negative (Negative); Nitrite,Urine Negative (Negative); PH, Urine 5.5 (5.0-8.0); Protein,Urine Negative (Negative); RBC,Urine 2 /hpf (0-5); Specific Gravity,Urine 1.019 (1.001-1.035); Squamous Epithelial Cell,Urine 1 /hpf (0-4); Urobilinogen,Urine <2.0 mg/dL (<2.0); WBC,Urine <1 /hpf (0-5)
--- NOTE | 2018-02-07 13:52 | ED ---
Abdominal Pain HPI - General Chief Complaint: Abdominal Pain Stated Complaint: abd pain Time Seen by Provider: 02/07/18 13:12 Source: patient, RN notes reviewed Mode of arrival: ambulatory Limitations: no limitations - History of Present Illness Initial Comments: 62-year-old female presents emergency Department chief complaint of abdominal pain for last 1-2 weeks. She states she left lower quadrant abdominal pain has been worse when she is been lifting and moving stuff because they're currently packing removed. Patient states cannot tolerate the pain today. She saw that she has had fevers at home. She has a history of diverticulitis. Denies any rectal bleeding but does live some diarrhea. Denies any dysuria or hematuria. Denies chest pain, shortness breath, nausea vomiting. - Related Data Home Medications Medication Instructions Recorded Confirmed Multivitamin/Iron/Folic Acid 1 tab PO DAILY 11/20/15 08/13/17 [Centrum Complete Multivit Tab] Acetaminophen/Diphenhydramine 2 tab PO HS 08/13/17 08/13/17 [Tylenol PM Extra Strength] Citalopram Hydrobromide [CeleXA] 20 mg PO DAILY 08/13/17 08/13/17 Previous Rx's Medication Instructions Recorded Amoxic-Pot Clav 875-125Mg 1 tab PO Q12HR #20 tablet 08/13/17 [Augmentin 875-125] Acetaminophen-Codeine 300-30mg 1 tab PO Q4H PRN #20 tablet 02/07/18 [Tylenol #3] Amoxicillin/Potassium Clav 1 tab PO Q12HR #20 tab 02/07/18 [Augmentin 875-125 Tablet] Allergies Allergy/AdvReac Type Severity Reaction Status Date / Time metronidazole [From Flagyl] AdvReac Nausea & Verified 02/07/18 13:09 Vomiting Review of Systems ROS Statement: Those systems with pertinent positive or pertinent negative responses have been documented in the HPI. ROS Other: All systems not noted in ROS Statement are negative. Past Medical History Past Medical History: Hyperlipidemia Additional Past Medical History / Comment(s): diverticulitis, HYPOTENSION History of Any Multi-Drug Resistant Organisms: None Reported Past Surgical History: Hysterectomy Additional Past Surgical History / Comment(s): D&C, oopherectomy Past Anesthesia/Blood Transfusion Reactions: Postoperative Nausea & Vomiting ( PONV) Past Psychological History: Anxiety, Depression Smoking Status: Current every day smoker Past Alcohol Use History: Rare Past Drug Use History: None Reported - Past Family History Father Family Medical History: Diabetes Mellitus, Hypertension Additional Family Medical History / Comment(s): septicemia, from Mother Family Medical History: Cancer, Hypertension Additional Family Medical History / Comment(s): leukemia Brother(s) Family Medical History: Coronary Artery Disease (CAD) Additional Family Medical History / Comment(s): heart bypass General Exam Limitations: no limitations General appearance: alert, in no apparent distress Head exam: Present: atraumatic, normocephalic, normal inspection Eye exam: Present: normal appearance, PERRL, EOMI. Absent: scleral icterus, conjunctival injection, periorbital swelling ENT exam: Present: normal exam, normal oropharynx, mucous membranes moist Neck exam: Present: normal inspection, full ROM. Absent: tenderness, meningismus, lymphadenopathy Respiratory exam: Present: normal lung sounds bilaterally. Absent: respiratory distress, wheezes, rales, rhonchi, stridor Cardiovascular Exam: Present: regular rate, normal rhythm, normal heart sounds. Absent: systolic murmur, diastolic murmur, rubs, gallop, clicks GI/Abdominal exam: Present: soft, tenderness (Moderate tenderness left lower quadrant), normal bowel sounds. Absent: distended, guarding, rebound, rigid Back exam: Absent: CVA tenderness (R), CVA tenderness (L) Course Vital Signs 02/07/18 13:06 Temperature 99.0 F Pulse Rate 106 H Respiratory 20 Rate Blood Pressure 126/67 O2 Sat by Pulse 98 Oximetry Medical Decision Making - Medical Decision Making 62-year-old female presents from for abdominal pain history of diverticulitis. Patient has mild diverticulitis no abscess. Patient's vitals are stable labwork unremarkable. Patient returns discharged on Augmentin as she has an ALLERGY to Flagyl. - Lab Data Result diagrams: 02/07/18 13:33 02/07/18 13:33 Lab Results 02/07/18 02/07/18 02/07/18 Range/Units 13:33 13:33 13:33 WBC 15.5 H (3.8-10.6) k/uL RBC 5.51 H (3.80-5.40) m/uL Hgb 16.1 H (11.4-16.0) gm/dL Hct 49.5 H (34.0-46.0) % MCV 89.8 (80.0-100.0) fL MCH 29.3 (25.0-35.0) pg MCHC 32.6 (31.0-37.0) g/dL RDW 14.0 (11.5-15.5) % Plt Count 303 (150-450) k/uL Neutrophils % 58 % Lymphocytes % 30 % Monocytes % 7 % Eosinophils % 3 % Basophils % 1 % Neutrophils # 9.0 H (1.3-7.7) k/uL Lymphocytes # 4.7 (1.0-4.8) k/uL Monocytes # 1.0 (0-1.0) k/uL Eosinophils # 0.4 (0-0.7) k/uL Basophils # 0.1 (0-0.2) k/uL Sodium 143 (137-145) mmol/L Potassium 4.3 (3.5-5.1) mmol/L Chloride 108 H (98-107) mmol/L Carbon Dioxide 26 (22-30) mmol/L Anion Gap 9 mmol/L BUN 10 (7-17) mg/dL Creatinine 0.70 (0.52-1.04) mg/dL Est GFR (CKD-EPI)AfAm >90 (>60 ml/min/1.73 sqM) Est GFR (CKD-EPI)NonAf >90 (>60 ml/min/1.73 sqM) Glucose 120 H (74-99) mg/dL Plasma Lactic Acid Alejandro 1.6 (0.7-2.0) mmol/L Calcium 9.5 (8.4-10.2) mg/dL Total Bilirubin 0.3 (0.2-1.3) mg/dL AST 13 L (14-36) U/L ALT 21 (9-52) U/L Alkaline Phosphatase 46 (38-126) U/L Total Protein 5.6 L (6.3-8.2) g/dL Albumin 3.3 L (3.5-5.0) g/dL Amylase 45 (30-110) U/L Lipase 56 (23-300) U/L Urine Color Urine Appearance (Clear) Urine pH (5.0-8.0) Ur Specific [place] (1.001-1.035) Urine Protein (Negative) Urine Glucose (UA) (Negative) Urine Ketones (Negative) Urine Blood (Negative) Urine Nitrite (Negative) Urine Bilirubin (Negative) Urine Urobilinogen (<2.0) mg/dL Ur Leukocyte Esterase (Negative) Urine RBC (0-5) /hpf Urine WBC (0-5) /hpf Ur Squamous Epith Cells (0-4) /hpf 02/07/18 Range/Units 13:33 WBC (3.8-10.6) k/uL RBC (3.80-5.40) m/uL Hgb (11.4-16.0) gm/dL Hct (34.0-46.0) % MCV (80.0-100.0) fL MCH (25.0-35.0) pg MCHC (31.0-37.0) g/dL RDW (11.5-15.5) % Plt Count (150-450) k/uL Neutrophils % % Lymphocytes % % Monocytes % % Eosinophils % % Basophils % % Neutrophils # (1.3-7.7) k/uL Lymphocytes # (1.0-4.8) k/uL Monocytes # (0-1.0) k/uL Eosinophils # (0-0.7) k/uL Basophils # (0-0.2) k/uL Sodium (137-145) mmol/L Potassium (3.5-5.1) mmol/L Chloride (98-107) mmol/L Carbon Dioxide (22-30) mmol/L Anion Gap mmol/L BUN (7-17) mg/dL Creatinine (0.52-1.04) mg/dL Est GFR (CKD-EPI)AfAm (>60 ml/min/1.73 sqM) Est GFR (CKD-EPI)NonAf (>60 ml/min/1.73 sqM) Glucose (74-99) mg/dL Plasma Lactic Acid Alejandro (0.7-2.0) mmol/L Calcium (8.4-10.2) mg/dL Total Bilirubin (0.2-1.3) mg/dL AST (14-36) U/L ALT (9-52) U/L Alkaline Phosphatase (38-126) U/L Total Protein (6.3-8.2) g/dL Albumin (3.5-5.0) g/dL Amylase (30-110) U/L Lipase (23-300) U/L Urine Color Yellow Urine Appearance Clear (Clear) Urine pH 5.5 (5.0-8.0) Ur Specific [place] 1.019 (1.001-1.035) Urine Protein Negative (Negative) Urine Glucose (UA) Negative (Negative) Urine Ketones Negative (Negative) Urine Blood Trace H (Negative) Urine Nitrite Negative (Negative) Urine Bilirubin Negative (Negative) Urine Urobilinogen <2.0 (<2.0) mg/dL Ur Leukocyte Esterase Negative (Negative) Urine RBC 2 (0-5) /hpf Urine WBC <1 (0-5) /hpf Ur Squamous Epith Cells 1 (0-4) /hpf Disposition Clinical Impression: Diverticulitis Disposition: HOME SELF-CARE Condition: Stable Instructions: Diverticulitis (ED) Additional Instructions: Please return to the Emergency Department if symptoms worsen or any other concerns. Prescriptions: Acetaminophen-Codeine 300-30mg [Tylenol #3] 1 tab PO Q4H PRN #20 tablet PRN Reason: pain Amoxicillin/Potassium Clav [Augmentin 875-125 Tablet] 1 tab PO Q12HR #20 tab Referrals: Ana Bowles MD [Primary Care Provider] - 1-2 days Time of Disposition: 15:07
[2018-02-07 13:57] LABS: ALT 21 U/L (9-52); AST 13 U/L (14-36); Albumin 3.3 g/dL (3.5-5.0); Alkaline Phosphatase 46 U/L (38-126); Amylase 45 U/L (30-110); Anion Gap 9 mmol/L; Blood Urea Nitrogen 10 mg/dL (7-17); Calcium 9.5 mg/dL (8.4-10.2); Carbon Dioxide 26 mmol/L (22-30); Chloride 108 mmol/L (98-107); Glucose 120 mg/dL (74-99); Lipase 56 U/L (23-300); Potassium 4.3 mmol/L (3.5-5.1); Sodium 143 mmol/L (137-145); Total Bilirubin 0.3 mg/dL (0.2-1.3); Total Protein 5.6 g/dL (6.3-8.2)
--- NOTE | 2018-02-07 14:46 | CT ---
EXAMINATION TYPE: CT abdomen pelvis w con DATE OF EXAM: 02/07/2018 COMPARISON: 08/13/2017 HISTORY: 62-year-old female LLQ pain with history of diverticulitis TECHNIQUE: Contiguous axial scanning of the abdomen and pelvis following administration of 100 ml Omn ipaque 300 IV contrast. Delayed images through the kidneys and coronal/sagittal reconstructions perf ormed. CT DLP: 1025.8 mGycm Automated exposure control for dose reduction was used. FINDINGS: Heart is normal size without pericardial effusion. Tiny hiatal hernia. Some strandy right basilar ate lectasis. Redemonstrated hepatomegaly measuring 22.7 cm craniocaudal. Slightly decreased attenuation of the daysi er as compared to the spleen on portal venous phase. No focal liver lesion seen. Portal venous system is patent. No biliary ductal dilatation. Gallbladder, right adrenal gland, left kidney, spleen, and pancreas show no gross abnormal mobility. Stable 1.1 cm cortical cyst posterior right kidney. Stable 8mm nodularity left adrenal gland which is indeterminate but statistically represents a benign adrenal adenoma. Moderate prostatic calcifications and plaque throughout the abdominal aorta and iliac arteries. No dilated small bowel, free fluid, or free air. Normal appendix. Scattered mild stool within the colon. There is descending and sigmoid colonic diverticulosis with fo maryse pericolonic inflammatory fat stranding and mild wall thickening at the proximal sigmoid. The prev ious inflammation along the lower descending colon has resolved. Multiple pelvic phleboliths. Bladder nondistended. Uterus surgically absent. Neither ovary clearly se en. No abnormal fluid collection the pelvis or pelvic lymphadenopathy seen. Bones: Degenerative changes at the hips and throughout the visualized spine. No osseous destructive p rocess. IMPRESSION: 1. DESCENDING AND SIGMOID COLONIC DIVERTICULOSIS. THERE IS MILD ACUTE DIVERTICULITIS ALONG THE PROXIM AL SIGMOID. NO ABSCESS OR FREE AIR. 2. HEPATOMEGALY (22.7 CM).
[2018-02-07] MEDS ORDERED: AMOXIC-POT CLAV 875-125MG 1 EACH TAB PO STA (15:07)
[2018-02-07] MEDS ORDERED: ACET/COD 300 MG/30 MG STARTER PACK 6 TAB BTL PO STA (15:07)
[2018-02-07 15:17] VITALS: BP 124/70; PULSE 78; RESP 16; TEMP 97.5
== END 2018-02-07 15:16 | disposition home or self-care (01) ==
LOC: EC 13:00
DX: K57.92 Diverticulitis of intestine, part unspecified, without perforation or abscess without bleeding (principal); F32.9 Major depressive disorder, single episode, unspecified; F41.9 Anxiety disorder, unspecified; F17.200 Nicotine dependence, unspecified, uncomplicated; Z79.899 Other long term (current) drug therapy; Z88.1 Allergy status to other antibiotic agents; Z90.710 Acquired absence of both cervix and uterus
CPT/HCPCS: 36415; 80053; 82150; 83605; 83690; 85025; 81001; 87040; 74177; 99284; 96374; 96361; J1885; Q9967

== ENCOUNTER 2020-01-08 12:16 | Emergency (ER) | payer MEDICARE, OTHER ==
[2020-01-08 12:21] VITALS: TEMP 98.4
--- NOTE | 2020-01-08 13:17 | ED ---
Back Pain HPI - General Chief Complaint: Back Pain/Injury Stated Complaint: Upper back pain Time Seen by Provider: 01/08/20 12:20 Source: patient Limitations: no limitations - History of Present Illness Initial Comments: The patient is a 64-year-old female with past history of diverticulitis who presents to the emergency department with reported low back pain. Reports that it is pleuritic in nature. Worse with movement. Patient states that it hurts more when she hunches forward. Improves when she sits up straight in a chair. States that she awoke one morning last week with the pain. She was concerned that she may have slept wrong. States that she's been resting and taking it easy however her symptoms have continued. She has been taking some Tylenol at home for her symptoms. Denies feeling short of breath. No anterior chest pain. No ripping or tearing sensation to her back. Denies any numbness, tingling or weakness in her extremities. No recent chiropractic manipulations of the neck. Denies any headaches or visual changes. No cough or hemoptysis. She does smoke a pack of cigarettes a day. There are no other alleviating, precipitating or modifying factors - Related Data Home Medications Medication Instructions Recorded Confirmed Multivitamin/Iron/Folic Acid 1 tab PO DAILY 11/20/15 08/13/17 [Centrum Complete Multivit Tab] Acetaminophen/Diphenhydramine 2 tab PO HS 08/13/17 08/13/17 [Tylenol PM Extra Strength] Citalopram Hydrobromide [CeleXA] 20 mg PO DAILY 08/13/17 08/13/17 Previous Rx's Medication Instructions Recorded Amoxic-Pot Clav 875-125Mg 1 tab PO Q12HR #20 tablet 08/13/17 [Augmentin 875-125] Acetaminophen-Codeine 300-30mg 1 tab PO Q4H PRN #20 tablet 02/07/18 [Tylenol #3] Amoxicillin/Potassium Clav 1 tab PO Q12HR #20 tab 02/07/18 [Augmentin 875-125 Tablet] Cyclobenzaprine [Flexeril] 10 mg PO TID PRN #21 tab 01/08/20 Allergies Allergy/AdvReac Type Severity Reaction Status Date / Time metronidazole [From Flagyl] AdvReac Nausea & Verified 01/08/20 12:21 Vomiting Review of Systems ROS Statement: Those systems with pertinent positive or pertinent negative responses have been documented in the HPI. ROS Other: All systems not noted in ROS Statement are negative. Past Medical History Past Medical History: Hyperlipidemia Additional Past Medical History / Comment(s): diverticulitis, HYPOTENSION History of Any Multi-Drug Resistant Organisms: None Reported Past Surgical History: Hysterectomy Additional Past Surgical History / Comment(s): D&C, oopherectomy Past Anesthesia/Blood Transfusion Reactions: Postoperative Nausea & Vomiting (PONV) Past Psychological History: Anxiety, Depression Smoking Status: Current every day smoker Past Alcohol Use History: Rare Past Drug Use History: None Reported - Past Family History Father Family Medical History: Diabetes Mellitus, Hypertension Additional Family Medical History / Comment(s): septicemia, from Mother Family Medical History: Cancer, Hypertension Additional Family Medical History / Comment(s): leukemia Brother(s) Family Medical History: Coronary Artery Disease (CAD) Additional Family Medical History / Comment(s): heart bypass General Exam Limitations: no limitations General appearance: alert, in no apparent distress Head exam: Present: atraumatic, normocephalic, normal inspection Eye exam: Present: normal appearance, PERRL, EOMI. Absent: scleral icterus, conjunctival injection, periorbital swelling ENT exam: Present: normal exam, mucous membranes moist Neck exam: Present: normal inspection. Absent: tenderness, meningismus, lymphadenopathy Respiratory exam: Present: normal lung sounds bilaterally. Absent: respiratory distress, wheezes, rales, rhonchi, stridor Cardiovascular Exam: Present: normal rhythm, tachycardia, normal heart sounds. Absent: systolic murmur, diastolic murmur, rubs, gallop, clicks GI/Abdominal exam: Present: soft, normal bowel sounds. Absent: distended, tenderness, guarding, rebound, rigid Extremities exam: Present: normal inspection, full ROM, normal capillary refill. Absent: tenderness, pedal edema, joint swelling, calf tenderness Back exam: Present: paraspinal tenderness (right sided at T7) Neurological exam: Present: alert, oriented X3, CN II-XII intact Psychiatric exam: Present: normal affect, normal mood Skin exam: Present: warm, dry, intact, normal color. Absent: rash Course Vital Signs 01/08/20 01/08/20 01/08/20 12:18 13:37 14:55 Temperature 98.4 F 98.4 F Pulse Rate 105 H 77 Respiratory 18 18 19 Rate Blood Pressure 138/77 121/82 O2 Sat by Pulse 96 99 Oximetry Medical Decision Making - Medical Decision Making Upon arrival the patient was placed into room 27. A thorough history and physical exam was performed. The patient is reporting to intrascapular back pain which is pleuritic in nature. Because of this I did recommend laboratory studies and a CT of her chest. Laboratory studies demonstrate a hemoglobin of 17.7. Glucose 140. Chest CT demonstrates evidence of pulmonary embolus and. No acute intrathoracic process. Small hiatal hernia. I discussed results with the patient. The patient feels much reassured that her symptoms are not secondary to a PE or pulmonary nodule. I did offer the patient something for pain control however she refused. At this time the patient will be discharged home. She is to follow-up with her primary care doctor in 2-4 days. Return to the emergency room for any new or worsening symptoms. She was given a prescription for Flexeril. Take the medications as directed at night. A work or drive. The patient understood the side effect profile. She has any new or worsening symptoms she should return to the emergency room. Patient was in agreement with the treatment she was discharged home in stable condition - Lab Data Result diagrams: 01/08/20 13:32 01/08/20 13:32 Lab Results 01/08/20 01/08/20 01/08/20 Range/Units 13:32 13:32 13:32 WBC 11.4 H (3.8-10.6) k/uL RBC 5.68 H (3.80-5.40) m/uL Hgb 17.7 H (11.4-16.0) gm/dL Hct 51.8 H (34.0-46.0) % MCV 91.2 (80.0-100.0) fL MCH 31.2 (25.0-35.0) pg MCHC 34.2 (31.0-37.0) g/dL RDW 13.7 (11.5-15.5) % Plt Count 252 (150-450) k/uL Neutrophils % 51 % Lymphocytes % 35 % Monocytes % 8 % Eosinophils % 2 % Basophils % 1 % Neutrophils # 5.8 (1.3-7.7) k/uL Lymphocytes # 4.0 (1.0-4.8) k/uL Monocytes # 0.9 (0-1.0) k/uL Eosinophils # 0.3 (0-0.7) k/uL Basophils # 0.1 (0-0.2) k/uL PT 9.4 (9.0-12.0) sec INR 0.9 (<1.2) APTT 24.8 (22.0-30.0) sec D-Dimer 0.39 (<0.60) mg/L FEU Sodium 136 L (137-145) mmol/L Potassium 4.8 (3.5-5.1) mmol/L Chloride 101 (98-107) mmol/L Carbon Dioxide 27 (22-30) mmol/L Anion Gap 8 mmol/L BUN 14 (7-17) mg/dL Creatinine 0.82 (0.52-1.04) mg/dL Est GFR (CKD-EPI)AfAm 87 (>60 ml/min/1.73 sqM) Est GFR (CKD-EPI)NonAf 75 (>60 ml/min/1.73 sqM) Glucose 140 H (74-99) mg/dL Calcium 10.0 (8.4-10.2) mg/dL Total Bilirubin 0.8 (0.2-1.3) mg/dL AST 18 (14-36) U/L ALT 14 (4-34) U/L Alkaline Phosphatase 65 (38-126) U/L Troponin I (0.000-0.034) ng/mL Total Protein 7.3 (6.3-8.2) g/dL Albumin 4.5 (3.5-5.0) g/dL 01/08/20 Range/Units 13:32 WBC (3.8-10.6) k/uL RBC (3.80-5.40) m/uL Hgb (11.4-16.0) gm/dL Hct (34.0-46.0) % MCV (80.0-100.0) fL MCH (25.0-35.0) pg MCHC (31.0-37.0) g/dL RDW (11.5-15.5) % Plt Count (150-450) k/uL Neutrophils % % Lymphocytes % % Monocytes % % Eosinophils % % Basophils % % Neutrophils # (1.3-7.7) k/uL Lymphocytes # (1.0-4.8) k/uL Monocytes # (0-1.0) k/uL Eosinophils # (0-0.7) k/uL Basophils # (0-0.2) k/uL PT (9.0-12.0) sec INR (<1.2) APTT (22.0-30.0) sec D-Dimer (<0.60) mg/L FEU Sodium (137-145) mmol/L Potassium (3.5-5.1) mmol/L Chloride (98-107) mmol/L Carbon Dioxide (22-30) mmol/L Anion Gap mmol/L BUN (7-17) mg/dL Creatinine (0.52-1.04) mg/dL Est GFR (CKD-EPI)AfAm (>60 ml/min/1.73 sqM) Est GFR (CKD-EPI)NonAf (>60 ml/min/1.73 sqM) Glucose (74-99) mg/dL Calcium (8.4-10.2) mg/dL Total Bilirubin (0.2-1.3) mg/dL AST (14-36) U/L ALT (4-34) U/L Alkaline Phosphatase (38-126) U/L Troponin I <0.012 (0.000-0.034) ng/mL Total Protein (6.3-8.2) g/dL Albumin (3.5-5.0) g/dL - EKG Data EKG Comments: EKG demonstrates a normal sinus rhythm with a ventricular rate of 79. OH interval 182. QRS E4. QTC of 444. No acute ST segment elevations or depressions concerning for ischemic changes Disposition Clinical Impression: Trapezius muscle strain, Thoracic back pain Disposition: HOME SELF-CARE Condition: Stable Instructions (If sedation given, give patient instructions): Back Pain (ED) Additional Instructions: Please follow-up with your primary care doctor in 2-4 days. Return to the emergency room for any new or worsening symptoms Prescriptions: Cyclobenzaprine [Flexeril] 10 mg PO TID PRN #21 tab PRN Reason: Muscle Spasm Is patient prescribed a controlled substance at d/c from ED?: No Referrals: Ana Bowles MD [Primary Care Provider] - 1-2 days Time of Disposition: 15:15
[2020-01-08 13:57] LABS: Basophils # (A) 0.1 k/uL (0-0.2); Basophils % (A) 1 %; Eosinophils # (A) 0.3 k/uL (0-0.7); Eosinophils % (A) 2 %; HCT 51.8 % (34.0-46.0); HGB 17.7 gm/dL (11.4-16.0); Lymphocytes % (A) 35 %; MCH 31.2 pg (25.0-35.0); MCHC 34.2 g/dL (31.0-37.0); MCV 91.2 fL (80.0-100.0); Mean Platelet Volume 9.2; Monocytes # (A) 0.9 k/uL (0-1.0); Monocytes % (A) 8 %; Neutrophils # (A) 5.8 k/uL (1.3-7.7); Neutrophils % (A) 51 %; Platelet Count 252 k/uL (150-450); RBC 5.68 m/uL (3.80-5.40); RDW 13.7 % (11.5-15.5); WBC 11.4 k/uL (3.8-10.6)
[2020-01-08 14:06] LABS: Albumin 4.5 g/dL (3.5-5.0); Potassium 4.8 mmol/L (3.5-5.1); Total Bilirubin 0.8 mg/dL (0.2-1.3); Total Protein 7.3 g/dL (6.3-8.2)
[2020-01-08 14:15] LABS: D-Dimer 0.39 mg/L FEU (<0.60); INR 0.9 (<1.2); Partial Thromboplastin Time 24.8 sec (22.0-30.0); Prothrombin Time 9.4 sec (9.0-12.0)
--- NOTE | 2020-01-08 14:49 | CT ---
EXAMINATION TYPE: CT chest angio for PE DATE OF EXAM: 01/08/2020 COMPARISON: None HISTORY: Pleuritic chest pain, tachycardia, smoker. CT DLP: 483.3 mGycm Automated exposure control for dose reduction was used. CONTRAST: CT Chest for pulmonary embolism performed with with IV Contrast, patient injected with 100 mL of Isov ue 370. FINDINGS: LUNGS: The lungs are grossly clear, there is no concerning parenchymal mass or nodule identified. T here is no pleural effusion or pneumothorax seen. The tracheobronchial tree is patent. There are two 1 mm subpleural nodules in the right upper lobe on axial image 36 which likely are benign. MEDIASTINUM: There is satisfactory enhancement of the pulmonary artery and its branches, there is no CT evidence for pulmonary embolism. There are no greater than 1 cm hilar or mediastinal lymph nodes. Atherosclerotic change of the aorta. Maximal dimension measures 3.7 cm. Coronary artery calcificatio n noted. Small hiatal hernia is seen. OTHER: Hypertrophic and degenerative change of the spine. Small hiatal hernia with thickening of the distal wall the esophagus may be related to incomplete distention. Correlate clinically. Esophagitis is not excluded. IMPRESSION: 1. No evidence of pulmonary embolism. 2. No acute intrathoracic process. 3. Small hiatal hernia correlate for esophagitis.
[2020-01-08 14:57] VITALS: BP 121/82; PULSE 77; RESP 19
== END 2020-01-08 15:22 | disposition home or self-care (01) ==
LOC: EC 12:16
DX: S29.012A Strain of muscle and tendon of back wall of thorax, initial encounter (principal); R00.0 Tachycardia, unspecified; F32.9 Major depressive disorder, single episode, unspecified; I26.99 Other pulmonary embolism without acute cor pulmonale; K44.9 Diaphragmatic hernia without obstruction or gangrene; F41.9 Anxiety disorder, unspecified; F17.200 Nicotine dependence, unspecified, uncomplicated; Z88.1 Allergy status to other antibiotic agents; Z79.899 Other long term (current) drug therapy; X58.XXXA Exposure to other specified factors, initial encounter
CPT/HCPCS: 36415; 93005; 85379; 80053; 84484; 85025; 85610; 85730; 71275; 99284; Q9967

== ENCOUNTER 2020-06-29 12:39 | Emergency (ER) | payer MEDICARE, OTHER ==
[2020-06-29 12:45] VITALS: TEMP 99.3
[2020-06-29] MEDS ORDERED: SODIUM CHLORIDE 0.9% 1,000 ML IV STA (12:55)
[2020-06-29] MEDS ORDERED: MORPHINE SULFATE 4 MG/ML SYRINGE IV STA (13:29)
--- NOTE | 2020-06-29 13:30 | ED ---
General Adult HPI - General Chief complaint: Abdominal Pain Stated complaint: Diverticulitis Time Seen by Provider: 06/29/20 12:47 Source: patient, RN notes reviewed, old records reviewed Mode of arrival: ambulatory Limitations: no limitations - History of Present Illness Initial comments: 65-year-old female patient past medical history significant for evaluation left lower quadrant pain for the last 3 days. Feels similar to her diverticulitis in the past. Denies any fevers. Denies any other complaints. Systemic: Pt denies fatigue, fever/chills, rash. Pt denies weakness, night sweats, weight loss. Neuro: Pt denies headache, visual disturbances, syncope or pre-syncope. HEENT: Pt denies ocular discharge or irritation, otalgia, rhinorrhea, pharyn gitis or notable lymphadenopathy. Cardiopulmonary: Pt denies chest pain, SOB, heart palpitations, dyspnea on exertion. Abdominal/GI: Pt denies n/v/d. : Pt denies dysuria, burning w/ urination, frequency/urgency. Denies new onset urinary or bowel incontinence. MSK: Pt denies myalgia, loss of strength or function in extremities. Neuro: Pt denies new onset weakness, paresthesias. - Related Data Home Medications Medication Instructions Recorded Confirmed Acetaminophen/Diphenhydramine 4 tab PO HS PRN 08/13/17 06/29/20 [Tylenol PM Extra Strength] Ibuprofen 400 mg PO Q8H PRN 06/29/20 06/29/20 Previous Rx's Medication Instructions Recorded Amoxicillin/Potassium Clav 1 each PO Q12HR 10 Days #20 tab 06/29/20 [Augmentin 875-125 Tablet] Allergies Allergy/AdvReac Type Severity Reaction Status Date / Time metronidazole [From Flagyl] AdvReac Nausea & Verified 06/29/20 13:20 Vomiting Review of Systems ROS Statement: Those systems with pertinent positive or pertinent negative responses have been documented in the HPI. ROS Other: All systems not noted in ROS Statement are negative. Past Medical History Past Medical History: Hyperlipidemia Additional Past Medical History / Comment(s): diverticulitis, HYPOTENSION History of Any Multi-Drug Resistant Organisms: None Reported Past Surgical History: Hysterectomy Additional Past Surgical History / Comment(s): D&C, oopherectomy Past Anesthesia/Blood Transfusion Reactions: Postoperative Nausea & Vomiting (PONV) Past Psychological History: Anxiety, Depression Smoking Status: Current every day smoker Past Alcohol Use History: Rare Past Drug Use History: None Reported - Past Family History Father Family Medical History: Diabetes Mellitus, Hypertension Additional Family Medical History / Comment(s): septicemia, from Mother Family Medical History: Cancer, Hypertension Additional Family Medical History / Comment(s): leukemia Brother(s) Family Medical History: Coronary Artery Disease (CAD) Additional Family Medical History / Comment(s): heart bypass General Exam - General Exam Comments Initial Comments: Constitutional: NAD, AOX3, Pt has pleasant affect. HEENT: NC/AT, trachea midline, neck supple, no lymphadenopathy. Posterior pharynx non erythematous, without exudates. External ears appear normal, without discharge. Mucous membranes moist. EOM intact. There is no scleral icterus. No pallor noted. Cardiopulmonary: RRR, no murmurs, rubs or gallops, no JVD noted. Lungs CTAB in anterior and posterior case. No peripheral edema. Abdominal exam: Abdomen soft and non-distended. Abdomen mildly tender to palpation left lower quadrant.. Bowel sounds active in LLQ. No hepatosplenomegaly. No ecchymosis Neuro: CN II-XII grossly intact. No nuchal rigidity. MSK: Full active ROM in upper and lower extremities. extremities are warm and well perfused. Limitations: no limitations Course Vital Signs 06/29/20 06/29/20 06/29/20 12:43 14:00 14:52 Temperature 99.3 F Pulse Rate 101 H 89 Respiratory 20 18 Rate Blood Pressure 118/73 121/81 124/64 O2 Sat by Pulse 96 98 Oximetry Medical Decision Making - Medical Decision Making 65 old female patient presents to ED for evaluation left lower quadrant abdominal pain going the last 2 days. Patient will signs are stable, afebrile. Physical exam displayed some left lower quadrant tenderness. Left investigations reveal leukocytosis. Mild urinary tract infection. CT does displayed mild sigmoid diverticulitis. Patient was initiated on Augmentin and discharged the patient primary care provider and given a surgeon to follow up with. Case discussed with Dr. Roland. - Lab Data Result diagrams: 06/29/20 13:16 06/29/20 13:16 Lab Results 06/29/20 06/29/20 06/29/20 Range/Units 13:16 13:16 13:16 WBC 17.1 H (3.8-10.6) k/uL RBC 5.40 (3.80-5.40) m/uL Hgb 15.8 (11.4-16.0) gm/dL Hct 48.7 H (34.0-46.0) % MCV 90.3 (80.0-100.0) fL MCH 29.3 (25.0-35.0) pg MCHC 32.5 (31.0-37.0) g/dL RDW 13.4 (11.5-15.5) % Plt Count 268 (150-450) k/uL Neutrophils % 65 % Lymphocytes % 26 % Monocytes % 4 % Eosinophils % 2 % Basophils % 1 % Neutrophils # 11.1 H (1.3-7.7) k/uL Lymphocytes # 4.5 (1.0-4.8) k/uL Monocytes # 0.7 (0-1.0) k/uL Eosinophils # 0.3 (0-0.7) k/uL Basophils # 0.2 (0-0.2) k/uL Sodium 136 L (137-145) mmol/L Potassium 4.4 (3.5-5.1) mmol/L Chloride 104 (98-107) mmol/L Carbon Dioxide 25 (22-30) mmol/L Anion Gap 7 mmol/L BUN 10 (7-17) mg/dL Creatinine 0.81 (0.52-1.04) mg/dL Est GFR (CKD-EPI)AfAm 88 (>60 ml/min/1.73 sqM) Est GFR (CKD-EPI)NonAf 76 (>60 ml/min/1.73 sqM) Glucose 165 H (74-99) mg/dL Plasma Lactic Acid Alejandro (0.7-2.0) mmol/L Calcium 9.4 (8.4-10.2) mg/dL Total Bilirubin 1.3 (0.2-1.3) mg/dL AST 17 (14-36) U/L ALT 15 (4-34) U/L Alkaline Phosphatase 64 (38-126) U/L Total Protein 7.0 (6.3-8.2) g/dL Albumin 4.1 (3.5-5.0) g/dL Lipase 39 (23-300) U/L Urine Color Yellow Urine Appearance Cloudy H (Clear) Urine pH 5.5 (5.0-8.0) Ur Specific [place] 1.017 (1.001-1.035) Urine Protein Trace H (Negative) Urine Glucose (UA) Negative (Negative) Urine Ketones Negative (Negative) Urine Blood Moderate H (Negative) Urine Nitrite Positive H (Negative) Urine Bilirubin Negative (Negative) Urine Urobilinogen <2.0 (<2.0) mg/dL Ur Leukocyte Esterase Moderate H (Negative) Urine RBC 15 H (0-5) /hpf Urine WBC 26 H (0-5) /hpf Ur Squamous Epith Cells 1 (0-4) /hpf Urine Bacteria Rare H (None) /hpf Urine Mucus Occasional H (None) /hpf 06/29/20 Range/Units 13:16 WBC (3.8-10.6) k/uL RBC (3.80-5.40) m/uL Hgb (11.4-16.0) gm/dL Hct (34.0-46.0) % MCV (80.0-100.0) fL MCH (25.0-35.0) pg MCHC (31.0-37.0) g/dL RDW (11.5-15.5) % Plt Count (150-450) k/uL Neutrophils % % Lymphocytes % % Monocytes % % Eosinophils % % Basophils % % Neutrophils # (1.3-7.7) k/uL Lymphocytes # (1.0-4.8) k/uL Monocytes # (0-1.0) k/uL Eosinophils # (0-0.7) k/uL Basophils # (0-0.2) k/uL Sodium (137-145) mmol/L Potassium (3.5-5.1) mmol/L Chloride (98-107) mmol/L Carbon Dioxide (22-30) mmol/L Anion Gap mmol/L BUN (7-17) mg/dL Creatinine (0.52-1.04) mg/dL Est GFR (CKD-EPI)AfAm (>60 ml/min/1.73 sqM) Est GFR (CKD-EPI)NonAf (>60 ml/min/1.73 sqM) Glucose (74-99) mg/dL Plasma Lactic Acid Alejandro 1.2 (0.7-2.0) mmol/L Calcium (8.4-10.2) mg/dL Total Bilirubin (0.2-1.3) mg/dL AST (14-36) U/L ALT (4-34) U/L Alkaline Phosphatase (38-126) U/L Total Protein (6.3-8.2) g/dL Albumin (3.5-5.0) g/dL Lipase (23-300) U/L Urine Color Urine Appearance (Clear) Urine pH (5.0-8.0) Ur Specific [place] (1.001-1.035) Urine Protein (Negative) Urine Glucose (UA) (Negative) Urine Ketones (Negative) Urine Blood (Negative) Urine Nitrite (Negative) Urine Bilirubin (Negative) Urine Urobilinogen (<2.0) mg/dL Ur Leukocyte Esterase (Negative) Urine RBC (0-5) /hpf Urine WBC (0-5) /hpf Ur Squamous Epith Cells (0-4) /hpf Urine Bacteria (None) /hpf Urine Mucus (None) /hpf Disposition Clinical Impression: Diverticulitis, UTI (urinary tract infection) Disposition: HOME SELF-CARE Condition: Stable Instructions (If sedation given, give patient instructions): Diverticulitis (ED), Urinary Tract Infection in Women (ED) Additional Instructions: Follow up with primary care provider and surgeon 1-2 days. Take antibiotics as directed. Return to ER if any worsening symptoms. Prescriptions: Amoxicillin/Potassium Clav [Augmentin 875-125 Tablet] 1 each PO Q12HR 10 Days #20 tab Is patient prescribed a controlled substance at d/c from ED?: No Referrals: Ana Bowles MD [Primary Care Provider] - 1-2 days Noris Car DO [Doctor of Osteopathic Medicine] - 1-2 days
[2020-06-29 13:39] LABS: Appearance,Urine Cloudy (Clear); Bacteria,Urine Rare /hpf; Bilirubin,Urine Negative (Negative); Blood,Urine Moderate (Negative); Color,Urine Yellow; Glucose,Urine (UA) Negative (Negative); Ketones,Urine Negative (Negative); Leukocyte Esterase,Urine Moderate (Negative); Mucus,Urine Occasional /hpf; Nitrite,Urine Positive (Negative); PH, Urine 5.5 (5.0-8.0); Protein,Urine Trace (Negative); RBC,Urine 15 /hpf (0-5); Specific Gravity,Urine 1.017 (1.001-1.035); Squamous Epithelial Cell,Urine 1 /hpf (0-4); Urobilinogen,Urine <2.0 mg/dL (<2.0); WBC,Urine 26 /hpf (0-5)
[2020-06-29 13:40] LABS: Basophils # (A) 0.2 k/uL (0-0.2); Basophils % (A) 1 %; Eosinophils # (A) 0.3 k/uL (0-0.7); Eosinophils % (A) 2 %; HCT 48.7 % (34.0-46.0); HGB 15.8 gm/dL (11.4-16.0); Lymphocytes # (A) 4.5 k/uL (1.0-4.8); Lymphocytes % (A) 26 %; MCH 29.3 pg (25.0-35.0); MCHC 32.5 g/dL (31.0-37.0); MCV 90.3 fL (80.0-100.0); Mean Platelet Volume 8.8; Monocytes # (A) 0.7 k/uL (0-1.0); Monocytes % (A) 4 %; Neutrophils # (A) 11.1 k/uL (1.3-7.7); Neutrophils % (A) 65 %; Platelet Count 268 k/uL (150-450); RDW 13.4 % (11.5-15.5); WBC 17.1 k/uL (3.8-10.6)
[2020-06-29 13:52] LABS: Albumin 4.1 g/dL (3.5-5.0); Calcium 9.4 mg/dL (8.4-10.2); Potassium 4.4 mmol/L (3.5-5.1); Total Bilirubin 1.3 mg/dL (0.2-1.3)
--- NOTE | 2020-06-29 14:44 | CT ---
EXAMINATION TYPE: CT abdomen pelvis w con DATE OF EXAM: 06/29/2020 COMPARISON: CT abdomen pelvis 02/07/2018 HISTORY: Pelvic pain with bowel changes. CT DLP: 1189.4 mGycm Automated exposure control for dose reduction was used. TECHNIQUE: Helical acquisition of images was performed from the lung bases through the pelvis. CONTRAST: Performed without Oral Contrast and with IV Contrast, patient injected with 100 mL of Isovue 300. FINDINGS: LUNG BASES: Mild bibasilar atelectasis. No pleural or pericardial effusion. LIVER: Hepatomegaly. Fatty liver. BILIARY SYSTEM: Normal. PANCREAS: Normal. SPLEEN: Normal. ADRENALS: Normal. KIDNEYS: Normal. BOWEL: No evidence of bowel obstruction. There is colonic diverticulosis. There is acute diverticuli tis of the mid sigmoid colon with inflammatory stranding. Normal appendix. PERITONEUM: No large free air is visualized. No free or focal fluid. ADENOPATHY: No lymphadenopathy. PELVIS: Normal urinary bladder. Hysterectomy and oophorectomy. VASCULATURE: No abdominal aortic aneurysm. Mixed atherosclerotic disease. MUSCULOSKELETAL: Degenerative changes of the spine. IMPRESSION: 1. Acute diverticulitis of the sigmoid colon. No evidence of abscess or microperforation. 2. Enlarged fatty liver.
[2020-06-29 14:53] VITALS: BP 124/64; PULSE 89; RESP 18
[2020-06-29] MEDS ORDERED: AMOXIC-POT CLAV 875-125MG 1 EACH TAB PO STA (14:54)
[2020-06-29] MEDS ORDERED: ACET/COD 300 MG/30 MG STARTER PACK 6 TAB BTL PO STA (15:01)
== END 2020-06-29 15:12 | disposition home or self-care (01) ==
LOC: EC 12:39
DX: N39.0 Urinary tract infection, site not specified (principal); K57.32 Diverticulitis of large intestine without perforation or abscess without bleeding; F17.200 Nicotine dependence, unspecified, uncomplicated; Z88.1 Allergy status to other antibiotic agents
CPT/HCPCS: 36415; 74177; 80053; 81001; 83605; 83690; 85025; 87077; 87086; 87186; 96361; 96365; 96375; 99285

== ENCOUNTER 2020-08-15 13:27 | Emergency (ER) | payer MEDICARE, OTHER ==
[2020-08-15 13:35] VITALS: BP 161/88; PULSE 88; RESP 16; TEMP 99.2
[2020-08-15] MEDS ORDERED: ACET/COD 300 MG/30 MG STARTER PACK 6 TAB BTL PO STA (13:46)
--- NOTE | 2020-08-15 13:48 | ED ---
ENT HPI - General Chief complaint: Dental/Oral Stated complaint: dental pain Time Seen by Provider: 08/15/20 13:33 Source: patient, RN notes reviewed Mode of arrival: ambulatory Limitations: no limitations - History of Present Illness Initial comments: 65-year-old female presents emergency Department with chief complaint of right lower dental pain. Patient states started over the last couple days she has a known bad tooth. Patient states she has not been able follow-up with dentist as she did not have insurance for a while though she states she has insurance now and is scheduled follow-up. She reports no fevers or chills. Patient states she has pain with eating and mild swelling on the right. No difficulty swallowing or difficult breathing. - Related Data Home Medications Medication Instructions Recorded Confirmed Acetaminophen/Diphenhydramine 4 tab PO HS PRN 08/13/17 06/29/20 [Tylenol PM Extra Strength] Ibuprofen 400 mg PO Q8H PRN 06/29/20 06/29/20 Previous Rx's Medication Instructions Recorded Amoxicillin/Potassium Clav 1 each PO Q12HR 10 Days #20 tab 06/29/20 [Augmentin 875-125 Tablet] Ibuprofen [Motrin] 600 mg PO Q8HR PRN #20 tab 08/15/20 Penicillin V Potassium [Pen Vee K] 500 mg PO QID #40 tablet 08/15/20 Allergies Allergy/AdvReac Type Severity Reaction Status Date / Time metronidazole [From Flagyl] AdvReac Nausea & Verified 08/15/20 13:32 Vomiting Review of Systems ROS Statement: Those systems with pertinent positive or pertinent negative responses have been documented in the HPI. ROS Other: All systems not noted in ROS Statement are negative. Past Medical History Past Medical History: Hyperlipidemia Additional Past Medical History / Comment(s): diverticulitis, HYPOTENSION History of Any Multi-Drug Resistant Organisms: None Reported Past Surgical History: Hysterectomy Additional Past Surgical History / Comment(s): D&C, oopherectomy Past Anesthesia/Blood Transfusion Reactions: Postoperative Nausea & Vomiting (PONV) Past Psychological History: Anxiety, Depression Smoking Status: Current every day smoker Past Alcohol Use History: Rare Past Drug Use History: None Reported - Past Family History Father Family Medical History: Diabetes Mellitus, Hypertension Additional Family Medical History / Comment(s): septicemia, from Mother Family Medical History: Cancer, Hypertension Additional Family Medical History / Comment(s): leukemia Brother(s) Family Medical History: Coronary Artery Disease (CAD) Additional Family Medical History / Comment(s): heart bypass General Exam Limitations: no limitations General appearance: alert, in no apparent distress Head exam: Present: atraumatic, normocephalic, normal inspection Eye exam: Present: normal appearance, PERRL, EOMI. Absent: scleral icterus, conjunctival injection, periorbital swelling ENT exam: Present: mucous membranes moist. Absent: normal oropharynx (Dental caries, dental erosion right lower mild swelling no abscess noted) Neck exam: Present: normal inspection, full ROM. Absent: tenderness, meningismus, lymphadenopathy Respiratory exam: Present: normal lung sounds bilaterally. Absent: respiratory distress, wheezes, rales, rhonchi, stridor Cardiovascular Exam: Present: regular rate, normal rhythm, normal heart sounds. Absent: systolic murmur, diastolic murmur, rubs, gallop, clicks Neurological exam: Present: alert, oriented X3, CN II-XII intact, reflexes normal. Absent: motor sensory deficit Skin exam: Present: warm, dry, intact, normal color. Absent: rash Course Vital Signs 08/15/20 13:32 Temperature 99.2 F Pulse Rate 88 Respiratory 16 Rate Blood Pressure 161/88 O2 Sat by Pulse 97 Oximetry Medical Decision Making - Medical Decision Making Patient was started on antibiotics, will follow-up with oral surgery or dentist. Patient was given anti-inflammatories, Tylenol codeine starter pack. Return parameters were discussed. Disposition Clinical Impression: Dental abscess Disposition: HOME SELF-CARE Condition: Stable Instructions (If sedation given, give patient instructions): Dental Abscess (ED) Additional Instructions: Please return to the Emergency Department if symptoms worsen or any other concerns. Prescriptions: Ibuprofen [Motrin] 600 mg PO Q8HR PRN #20 tab PRN Reason: Pain Penicillin V Potassium [Pen Vee K] 500 mg PO QID #40 tablet Is patient prescribed a controlled substance at d/c from ED?: No Referrals: Ana Bowles MD [Primary Care Provider] - 1-2 days Shar Fuentes DDS [STAFF PHYSICIAN] - 1-2 days Time of Disposition: 13:47
== END 2020-08-15 14:03 | disposition home or self-care (01) ==
LOC: EC 13:27
DX: K04.7 Periapical abscess without sinus (principal); F17.200 Nicotine dependence, unspecified, uncomplicated; Z88.1 Allergy status to other antibiotic agents
CPT/HCPCS: 99282

== ENCOUNTER 2021-07-05 14:31 | Emergency (ER) | payer MEDICARE, OTHER ==
[2021-07-05 15:49] VITALS: BP 147/85; PULSE 99; RESP 20; TEMP 98.8
--- NOTE | 2021-07-05 15:59 | ED ---
Abdominal Pain HPI - General Stated Complaint: abd pain - History of Present Illness Initial Comments: May is a 66yo F with PMH of recurrent diverticulitis who presents to the ER today via private vehicle for evaluation of 4 days of abdominal pain which she reports is identical to previous episodes of diverticulitis. Patient states she has had 4 days of LLQ abdominal pain and diarrhea. She states that on Thursday she had a temp of 101.4, but that resolved with motrin. No fever since that time. No nausea or vomiting. Patient reports pain is 6/10 in intensity. ' First COVID shot was Jun 14. - Related Data Home Medications Medication Instructions Recorded Confirmed Acetaminophen/Diphenhydramine 4 tab PO HS PRN 08/13/17 06/29/20 [Tylenol PM Extra Strength] Ibuprofen 400 mg PO Q8H PRN 06/29/20 06/29/20 Previous Rx's Medication Instructions Recorded Amoxicillin/Potassium Clav 1 each PO Q12HR 10 Days #20 tab 06/29/20 [Augmentin 875-125 Tablet] Ibuprofen [Motrin] 600 mg PO Q8HR PRN #20 tab 08/15/20 Penicillin V Potassium [Pen Vee K] 500 mg PO QID #40 tablet 08/15/20 Amoxic-Pot Clav 875-125Mg 1 tab PO Q12HR 1 Days #2 tab 07/05/21 [Augmentin 875-125] HYDROcodone/APAP 5-325MG [[place] 1 tab PO Q4HR PRN 3 Days #12 tab 07/05/21 5-325] Allergies Allergy/AdvReac Type Severity Reaction Status Date / Time metronidazole [From Flagyl] AdvReac Nausea & Verified 07/05/21 15:49 Vomiting Review of Systems ROS Statement: Those systems with pertinent positive or pertinent negative responses have been documented in the HPI. ROS Other: All systems not noted in ROS Statement are negative. Past Medical History Past Medical History: Hyperlipidemia Additional Past Medical History / Comment(s): diverticulitis, HYPOTENSION History of Any Multi-Drug Resistant Organisms: None Reported Past Surgical History: Hysterectomy Additional Past Surgical History / Comment(s): D&C, oopherectomy Past Anesthesia/Blood Transfusion Reactions: Postoperative Nausea & Vomiting (PONV) Past Psychological History: Anxiety, Depression Smoking Status: Current every day smoker Past Alcohol Use History: Rare Past Drug Use History: None Reported - Past Family History Father Family Medical History: Diabetes Mellitus, Hypertension Additional Family Medical History / Comment(s): septicemia, from Mother Family Medical History: Cancer, Hypertension Additional Family Medical History / Comment(s): leukemia Brother(s) Family Medical History: Coronary Artery Disease (CAD) Additional Family Medical History / Comment(s): heart bypass General Exam - General Exam Comments Initial Comments: Physical Exam GENERAL: Patient is well-developed and well-nourished. Patient is nontoxic and well- hydrated and is in no distress. HENT: Normocephalic, Atraumatic. EYES: PERRL, EOMI PULMONARY: Unlabored respirations. No audible rales rhonchi or wheezing was noted. CARDIOVASCULAR: There is a regular rate and rhythm without any murmurs gallops or rubs. ABDOMEN: Soft, non-peritoneal, mild tenderness in the left lower quadrant and suprapubic region SKIN: Skin is clear with no lesions or rashes and otherwise unremarkable. : Deferred NEUROLOGIC: Patient is alert and oriented x3. Moving all extremities spontaneously MUSCULOSKELETAL: Normal extremities with adequate strength and full range of motion. No lower extremity swelling or edema. No calf tenderness. PSYCHIATRIC: Normal psychiatric evaluation. Course Vital Signs 07/05/21 15:45 Temperature 98.8 F Pulse Rate 99 Respiratory 20 Rate Blood Pressure 147/85 O2 Sat by Pulse 95 Oximetry Medical Decision Making - Medical Decision Making The patient was seen and evaluated history is obtained from the patient, patient has a history of recurrent diverticulitis reports she believes she is having a flare has pain similar to previous episodes of diverticulitis. Patient is afebrile not tachycardic and not hypoxic or hypotensive. No signs of an acute abdomen. 7 treatment were discussed with the patient considering that she is being seen during a COVID search she would prefer is little time in hospitals possible's comfortable with the plan for empiric treatment of diverticulitis with oral antibiotics and pain medications. Close return parameters were discussed patient was discharged home in stable condition. Disposition Clinical Impression: Diverticulitis Disposition: HOME SELF-CARE Condition: Stable Instructions (If sedation given, give patient instructions): Diverticulitis (ED) Prescriptions: Amoxic-Pot Clav 875-125Mg [Augmentin 875-125] 1 tab PO Q12HR 1 Days #2 tab HYDROcodone/APAP 5-325MG [[place] 5-325] 1 tab PO Q4HR PRN 3 Days #12 tab PRN Reason: Pain Is patient prescribed a controlled substance at d/c from ED?: No Referrals: None,Stated [Primary Care Provider] - 1-2 days Rosie Meade MD [STAFF PHYSICIAN] - 1-2 days
== END 2021-07-05 16:04 | disposition home or self-care (01) ==
LOC: EC 14:31
DX: K57.92 Diverticulitis of intestine, part unspecified, without perforation or abscess without bleeding (principal); E78.5 Hyperlipidemia, unspecified; F41.9 Anxiety disorder, unspecified; F32.9 Major depressive disorder, single episode, unspecified; F17.200 Nicotine dependence, unspecified, uncomplicated; Z88.1 Allergy status to other antibiotic agents; Z90.710 Acquired absence of both cervix and uterus
CPT/HCPCS: 99283